=== PATIENT | male | born 1975 | race Two or more races ===

== ENCOUNTER 2019-03-04 10:46 | Inpatient (IN) | payer MEDICAID ==
[~2019-03-04] VITALS: Ht 175.3 cm; Wt 84.8 kg
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
[2019-03-04 10:59] VITALS: BP 113/77
--- NOTE | 2019-03-04 11:07 | NUR ---
ED Nurse Note: RADIOLOGY CALLED FOR CT.
--- NOTE | 2019-03-04 11:33 | NUR ---
ED Nurse Note: PT TO CT VIA [facility].
--- NOTE | 2019-03-04 12:00 | NUR ---
ED Nurse Note: PT BACK FROM CT VIA [facility].
[2019-03-04] MEDS ORDERED: Piperacillin/Tazobactam 3.375 GM in NS 110 ML IVPB ONE (12:15)
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
--- NOTE | 2019-03-04 12:19 | Diagnostic Imaging Report ---
Indications: Altered mental status Technique: Spiral acquisitions obtained through the brain. Angled axial and coronal 5 x 5 mm slices were reconstructed. Total dose length product 1386.64 mGycm. CTDI vol(s) 70.38 mGy. Dose reduction achieved using automated exposure control Comparison: None. Findings: No acute intracranial hemorrhage or edema, mass effect, nor midline shift. There is a right periorbital scalp soft tissue contusion. Normal rodriguez-white differentiation. Normal-sized ventricles and extra-axial CSF spaces. Probable small colloid cyst at the roof of the third ventricle. Intact calvarium. Impression: Right periorbital scalp soft tissue contusion Negative for acute intracranial bleed or mass effect The CT scanner at [facility] is accredited by the [employer] and the scans are performed using protocols designed to limit radiation exposure to as low as reasonably achievable to attain images of sufficient resolution adequate for diagnostic evaluation.
[2019-03-04 13:00] LABS: BASOPHILS % (AUTO) 0.9 % (0.0-2.0); EOSINOPHILS % (AUTO) 0.8 % (0.0-3.0); HEMATOCRIT 38.8 % (42.0-52.0); HEMOGLOBIN 12.6 G/DL (14.2-18.0); LYMPHOCYTES % (AUTO) 18.5 % (20.0-45.0); MEAN CORPUSCULAR VOLUME 95 FL (80-99); MONOCYTES % (AUTO) 10.1 % (1.0-10.0); NEUTROPHILS % (AUTO) 69.8 % (45.0-75.0); PLATELET COUNT 315 K/UL (150-450); RED BLOOD COUNT 4.09 M/UL (4.70-6.10); RED CELL DISTRIBUTION WIDTH 15.5 % (11.6-14.8); WHITE BLOOD COUNT 10.6 K/UL (4.8-10.8)
[2019-03-04 13:38] LABS: ANION GAP 9 mmol/L (5-15); BLOOD UREA NITROGEN 10 mg/dL (7-18); CARBON DIOXIDE 25 MMOL/L (21-32); CHLORIDE 103 MMOL/L (98-107); CREATININE 0.7 MG/DL (0.55-1.30); POTASSIUM 4.2 MMOL/L (3.5-5.1); SODIUM 137 MMOL/L (136-145)
[2019-03-04 13:43] LABS: ALANINE AMINOTRANSFERASE 58 U/L (12-78); ALBUMIN 3.6 G/DL (3.4-5.0); ALBUMIN/GLOBULIN RATIO 0.9 (1.0-2.7); ALKALINE PHOSPHATASE 97 U/L (46-116); ASPARTATE AMINO TRANSFERASE 41 U/L (15-37); BILIRUBIN,TOTAL 0.3 MG/DL (0.2-1.0)
[2019-03-04 14:51] LABS: INR 0.9 (0.9-1.1)
[2019-03-04 15:00] VITALS: BP 116/78
[2019-03-04] MEDS ORDERED: Miralax 17gm pkt ORAL PRN (15:30)
[2019-03-04] MEDS ORDERED: Nitroglycerin Subl 0.4mg tab SL PRN (15:30)
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
[2019-03-04] MEDS ORDERED: NKM (16:26)
--- NOTE | 2019-03-04 17:24 | NUR ---
ED Nurse Note: [facility] CALLED FOR PT TRANSFER. REPORT GIVEN TO LEN BARDALES. PT TAKEN UP TO [facility] VIA GURNEY WITH ALL BELONGINGS ACCOMPANIED BY EMT. VSS.
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
--- NOTE | 2019-03-04 19:41 | NUR ---
HAND-OFF: Report given to Marjorie QUINTEROS.
[2019-03-04 20:00] VITALS: BP 125/69
[2019-03-04] MEDS: D5 1/2NS 1,000 ML IV SCH (20:00)
[2019-03-04] MEDS: Heparin 5000 units/ml inj SUBQ SCH (21:00)
[2019-03-05] VITALS: BP 145/69
[2019-03-05] MEDS: D5 1/2NS 1,000 ML IV SCH (07:00)
--- NOTE | 2019-03-05 07:36 | NUR ---
NURSE NOTES: Patient is awake and alert,respirations unlabored.Patient sitting up in bed and eating breakfast.No complaints at this time,call light within reach.
[2019-03-05 08:00] VITALS: BP 107/63
[2019-03-05 08:47] LABS: HEMOGLOBIN 11.6 G/DL (14.2-18.0); LYMPHOCYTES % (AUTO) 23.1 % (20.0-45.0); MEAN CORPUSCULAR VOLUME 93 FL (80-99); MONOCYTES % (AUTO) 9.3 % (1.0-10.0); NEUTROPHILS % (AUTO) 63.6 % (45.0-75.0); PLATELET COUNT 298 K/UL (150-450); RED BLOOD COUNT 3.75 M/UL (4.70-6.10); WHITE BLOOD COUNT 8.8 K/UL (4.8-10.8)
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
[2019-03-05 09:25] LABS: ALANINE AMINOTRANSFERASE 51 U/L (12-78); ALBUMIN 2.7 G/DL (3.4-5.0); ALBUMIN/GLOBULIN RATIO 0.7 (1.0-2.7); ALKALINE PHOSPHATASE 83 U/L (46-116); AMYLASE 27 U/L (25-115); ANION GAP 9 mmol/L (5-15); ASPARTATE AMINO TRANSFERASE 33 U/L (15-37); BILIRUBIN,TOTAL 0.3 MG/DL (0.2-1.0); BLOOD UREA NITROGEN 8 mg/dL (7-18); CALCIUM 8.2 MG/DL (8.5-10.1); CARBON DIOXIDE 26 MMOL/L (21-32); CHLORIDE 105 MMOL/L (98-107); CREATININE 0.8 MG/DL (0.55-1.30); POTASSIUM 3.9 MMOL/L (3.5-5.1); SODIUM 140 MMOL/L (136-145)
[2019-03-05] MEDS: Heparin 5000 units/ml inj SUBQ SCH ×2 (10:55→21:58)
[2019-03-05 12:00] VITALS: BP 110/76
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
[2019-03-05] MEDS: Clindamycin 150mg cap ORAL SCH ×2 (14:16→21:56)
[2019-03-05 16:00] VITALS: BP 126/75
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
--- NOTE | 2019-03-05 18:16 | History & Physical ---
History and Physical History & Physicial Dictated for Int Med-Dr Flores no. [id number]. Valerio Daniel MD Mar 05, 2019 18:16
--- NOTE | 2019-03-05 18:41 | NUR ---
NURSE NOTES: Patient tolerating meals and snacks,no complaint of pain.Old scar /surgical incision no drainage noted,patient was started on oral antibiotics as ordered.Patient ambulating throughout the day,gait is steady.
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
--- NOTE | 2019-03-05 19:50 | NUR ---
HAND-OFF: Report given to Marjorie QUINTEROS.
[2019-03-05 20:00] VITALS: BP 130/79
[2019-03-06] VITALS: BP 132/78
--- NOTE | 2019-03-06 01:45 | NUR ---
NURSE NOTES: Pt received in bed asleep, able to make needs known, ambulatory, call light within reach, dry dressing on abdomen and wound care nurse notified about patient abdomen, no c/o pain or signs of distress at the moment, will continue to monitor.
--- NOTE | 2019-03-06 01:57 | NUR ---
HAND-OFF: Report given to LEN CHAMBERS.
[2019-03-06 04:00] VITALS: BP 129/97
[2019-03-06] MEDS: Clindamycin 150mg cap ORAL SCH ×3 (05:04→21:08)
--- NOTE | 2019-03-06 07:25 | NUR ---
NURSE NOTES: Received report from LEN Davenport. Pt in bed, awake, talkative, but disoriented. Eating breakfast, no complaints of pain, no apparent distress, bed in lowest position, call light within reach.
--- NOTE | 2019-03-06 07:41 | NUR ---
HAND-OFF: Report given to LEN boles.
[2019-03-06 08:00] VITALS: BP 136/70
[2019-03-06] MEDS: Heparin 5000 units/ml inj SUBQ SCH ×2 (08:04→21:13)
[2019-03-06 08:54] LABS: BASOPHILS % (AUTO) 1.5 % (0.0-2.0); HEMATOCRIT 38.5 % (42.0-52.0); HEMOGLOBIN 12.4 G/DL (14.2-18.0); LYMPHOCYTES % (AUTO) 30.4 % (20.0-45.0); MEAN CORPUSCULAR VOLUME 95 FL (80-99); MONOCYTES % (AUTO) 14.7 % (1.0-10.0); NEUTROPHILS % (AUTO) 48.4 % (45.0-75.0); PLATELET COUNT 337 K/UL (150-450); RED BLOOD COUNT 4.04 M/UL (4.70-6.10); RED CELL DISTRIBUTION WIDTH 15.4 % (11.6-14.8); WHITE BLOOD COUNT 8.1 K/UL (4.8-10.8)
[2019-03-06 09:24] LABS: ANION GAP 9 mmol/L (5-15); BLOOD UREA NITROGEN 14 mg/dL (7-18); CALCIUM 8.6 MG/DL (8.5-10.1); CARBON DIOXIDE 26 MMOL/L (21-32); CHLORIDE 106 MMOL/L (98-107); CREATININE 0.8 MG/DL (0.55-1.30); POTASSIUM 4.2 MMOL/L (3.5-5.1); SODIUM 141 MMOL/L (136-145)
--- NOTE | 2019-03-06 10:11 | General Progress Note ---
Assessment/Plan Problem List: (1) Psychiatric disorder ICD Codes: F99 - Mental disorder, not otherwise specified SNOMED: 22156232 (2) Foreign body in intestine and colon ICD Codes: T18.3XXA - Foreign body in small intestine, initial encounter; T18.4XXA - Foreign body in colon, initial encounter SNOMED: 197549287 (3) Intra-abdominal free air of unknown etiology ICD Codes: K66.8 - Other specified disorders of peritoneum SNOMED: 55076529 Assessment/Plan: surg in put appreciated on reg diet no need for GI procedures Subjective ROS Limited/Unobtainable: Yes Allergies: Coded Allergies: No Known Allergies (Unverified , 03/04/19) Objective Last 24 Hour Vital Signs Date Time Temp Pulse Resp B/P (MAP) Pulse Ox O2 Delivery O2 Flow Rate FiO2 03/06/19 09:00 Room Air 03/06/19 08:00 97.9 67 16 136/70 (92) 98 03/06/19 04:00 98.6 69 20 129/97 (108) 97 03/06/19 00:00 98.7 55 19 132/78 (96) 97 03/05/19 21:00 Room Air 03/05/19 20:00 99.6 51 19 130/79 (96) 97 03/05/19 16:00 98.1 77 18 126/75 (92) 97 03/05/19 12:00 97.2 59 18 110/76 (87) 96 Intake and Output 03/05/19 03/06/19 19:00 07:00 Intake Total 2000 ml 960 ml Balance 2000 ml 960 ml Intake Oral 960 ml Other 2000 ml # Voids 5 Laboratory Tests 03/06/19 05:44: White Blood Count 8.1, Red Blood Count 4.04L, Hemoglobin 12.4L, Hematocrit 38.5L , Mean Corpuscular Volume 95, Mean Corpuscular Hemoglobin 30.7, Mean Corpuscular Hemoglobin Concent 32.2, Red Cell Distribution Width 15.4H, Platelet Count 337, Mean Platelet Volume 8.5, Neutrophils (%) (Auto) 48.4, Lymphocytes (%) (Auto) 30.4, Monocytes (%) (Auto) 14.7H, Eosinophils (%) (Auto) 5.0H, Basophils (%) (Auto) 1.5, Sodium Level 141, Potassium Level 4.2, Chloride Level 106, Carbon Dioxide Level 26, Anion Gap 9, Blood Urea Nitrogen 14, Creatinine 0.8, Estimat Glomerular Filtration Rate > 60, Glucose Level 111H, Calcium Level 8.6 Height (Feet): 5 Height (Inches): 9.00 Weight (Pounds): 190 General Appearance: alert EENT: normal ENT inspection Neck: supple Cardiovascular: normal rate Respiratory/Chest: lungs clear Abdomen: normal bowel sounds, non tender, soft Extremities: non-tender Sami Sears MD Mar 06, 2019 10:11
[2019-03-06] MEDS ORDERED: D5 1/2NS 1000ml IV ONE (10:24)
[2019-03-06 12:00] VITALS: BP 120/76
--- NOTE | 2019-03-06 12:41 | Internal Med Progress Note ---
Subjective Date of Service: Mar 06, 2019 Physician Name Valerio Daniel Attending Physician Bill Flores MD Current Medications Medications (Trade) Dose Ordered Sig/Elicia Route PRN Reason Start Time Stop Time Status Last Admin Dose Admin Acetaminophen (Tylenol) 650 mg Q4H PRN ORAL fever (temp>100.5 F) 03/04/19 15:30 04/03/19 15:29 Clindamycin HCl (Cleocin) 450 mg EVERY 8 HOURS ORAL 03/05/19 14:00 03/12/19 13:59 03/06/19 05:04 Dextrose (Dextrose 50%) 25 ml Q30M PRN IV Hypoglycemia 03/04/19 15:30 04/03/19 15:29 Dextrose (Dextrose 50%) 50 ml Q30M PRN IV Hypoglycemia 03/04/19 15:30 04/03/19 15:29 Diphenhydramine HCl (Benadryl) 25 mg Q6H PRN ORAL Itching/Pruritis 03/04/19 15:30 04/03/19 15:29 Heparin Sodium (Porcine) (Heparin 5000 units/ml) 5,000 units EVERY 12 HOURS SUBQ 03/04/19 21:00 04/03/19 20:59 03/06/19 08:04 Morphine Sulfate (Morphine Sulfate) 2 mg Q4H PRN IVP severe Pain (Pain Scale 7-10) 03/04/19 15:30 03/11/19 15:29 Nitroglycerin (Ntg) 0.4 mg Q5M X 3 DOSES PRN SL Prn Chest Pain 03/04/19 15:30 04/03/19 15:29 Ondansetron HCl (Zofran) 4 mg Q6H PRN IVP Nausea & Vomiting 03/04/19 15:30 04/03/19 15:29 Polyethylene Glycol (Miralax) 17 gm HSPRN PRN ORAL Constipation 03/04/19 15:30 04/03/19 15:29 Temazepam (Restoril) 15 mg HSPRN PRN ORAL Insomnia 03/04/19 21:00 03/11/19 20:59 Allergies: Coded Allergies: No Known Allergies (Unverified , 03/04/19) ROS Limited/Unobtainable: No Constitutional: Reports: no symptoms HEENT: Reports: no symptoms Cardiovascular: Reports: no symptoms Respiratory: Reports: no symptoms Gastrointestinal/Abdominal: Reports: no symptoms Genitourinary: Reports: no symptoms Neurologic/Psychiatric: Reports: no symptoms Subjective 43 YO M admitted with abdominal pain, nausea and vomiting. Now foreign body in intestine and colon with perforated viscus. Cover for Int Eliseo-Dr Flores Objective Last Vital Signs Date Time Temp Pulse Resp B/P (MAP) Pulse Ox O2 Delivery O2 Flow Rate FiO2 03/06/19 12:00 97.9 62 16 120/76 (91) 99 03/06/19 09:00 Room Air Laboratory Tests Test 03/06/19 05:44 White Blood Count 8.1 K/UL (4.8-10.8) Red Blood Count 4.04 M/UL (4.70-6.10) L Hemoglobin 12.4 G/DL (14.2-18.0) L Hematocrit 38.5 % (42.0-52.0) L Mean Corpuscular Volume 95 FL (80-99) Mean Corpuscular Hemoglobin 30.7 PG (27.0-31.0) Mean Corpuscular Hemoglobin Concent 32.2 G/DL (32.0-36.0) Red Cell Distribution Width 15.4 % (11.6-14.8) H Platelet Count 337 K/UL (150-450) Mean Platelet Volume 8.5 FL (6.5-10.1) Neutrophils (%) (Auto) 48.4 % (45.0-75.0) Lymphocytes (%) (Auto) 30.4 % (20.0-45.0) Monocytes (%) (Auto) 14.7 % (1.0-10.0) H Eosinophils (%) (Auto) 5.0 % (0.0-3.0) H Basophils (%) (Auto) 1.5 % (0.0-2.0) Sodium Level 141 MMOL/L (136-145) Potassium Level 4.2 MMOL/L (3.5-5.1) Chloride Level 106 MMOL/L (98-107) Carbon Dioxide Level 26 MMOL/L (21-32) Anion Gap 9 mmol/L (5-15) Blood Urea Nitrogen 14 mg/dL (7-18) Creatinine 0.8 MG/DL (0.55-1.30) Estimat Glomerular Filtration Rate > 60 mL/min (>60) Glucose Level 111 MG/DL (74-106) H Calcium Level 8.6 MG/DL (8.5-10.1) Intake and Output 03/05/19 03/06/19 19:00 07:00 Intake Total 2000 ml 960 ml Balance 2000 ml 960 ml Intake Oral 960 ml Other 2000 ml # Voids 5 Objective PHYSICAL EXAMINATION: GENERAL: The patient is well-developed and well-nourished, confused male, in no apparent distress HEENT: Eyes, pupils are equal and responsive to light and accommodation. Extraocular movements are intact. NECK: Supple without lymphadenopathy. CHEST: Lungs are clear to auscultation bilaterally without wheezes or rales. CARDIOVASCULAR: Regular rhythm and rate. S1 and S2 normal without murmurs, rubs, or gallops. ABDOMEN: Soft, nontender, and nondistended. Positive bowel sounds. No evidence of hepatosplenomegaly. Currently, no rebound or guarding noted. EXTREMITIES: Negative for clubbing, cyanosis, or edema. RECTAL/GENITAL: Refused. NEUROLOGIC: Cranial nerves II through XII are grossly intact without focal deficits. Motor strength is 5/5 bilaterally. Deep tendon reflexes are 2+ plantar. Assessment/Plan Assessment/Plan ASSESSMENT: This is a 43-year-old male. 1. Abdominal pain. 2. Nausea with vomiting. 3. Perforated abdominal viscus. 4. Asthma. 5. Hypertension. 6. Diabetes type 2. 7. foreign object in sm intestine and colon 8. Schizophrenia TREATMENT: 1. Abdominal pain/nausea/vomiting/perforated viscus. A General Surgery consultation has been obtained with Dr. Tsang. We will follow recommendations of Surgery. The patient is currently tolerating diet. 2. Asthma. 3. Hypertension. The patient is currently normotensive, off medication. 4. History of diabetes type 2. The patient's blood sugar is currently normal. Valerio Daniel MD Mar 06, 2019 12:41
--- NOTE | 2019-03-06 14:32 | NUR ---
CASE MANAGEMENT: REVIEW 03/06/2019 SI:FOREIGN BODY IN INTESTINE AND COLON . INTRA-ABDOMINAL FREE AIR T 98.7 HR 55 RR 19 B/P 132/78 SATS 97% ON RA GLU 111 IS:CLINDAMYCIN PO Q8H MED/SURG STATUS
[2019-03-06 15:46] VITALS: BP 118/99
--- NOTE | 2019-03-06 18:44 | NUR ---
NURSE NOTES: Pt walked out to nurse's station stating, "can I get a PRN or something, something is telling me to stick a needle into my neck and hurt myself." Called Dr. Daniel for psych consult and request for medication. Left message on emergency line
--- NOTE | 2019-03-06 19:08 | NUR ---
HAND-OFF: Report given to LEN Larkin. Pt stable.
--- NOTE | 2019-03-06 19:33 | Cardiology Report ---
APPROVED REPORT EKG Measurement Heart [id number] Sinus bradycardia Otherwise normal ECG
[2019-03-06 20:08] VITALS: BP 110/57
--- NOTE | 2019-03-06 20:14 | NUR ---
NURSE NOTES: Patient in bed, awake, talkative, can make needs known. No s/s respiratory distress noted. No complaints of pain at this times. No complaints of hearing voices at this time. Ambulatory. Given juice. Bed in lowest position, call light within reach. Will continue to monitor.
[2019-03-07] VITALS: BP 120/71
[2019-03-07] MEDS: Clindamycin 150mg cap ORAL SCH ×3 (05:06→21:33)
--- NOTE | 2019-03-07 06:33 | NUR ---
NURSE NOTES: No distress noted, asleep.
--- NOTE | 2019-03-07 07:30 | NUR ---
HAND-OFF: Report given to MORIS Putnam RN.
--- NOTE | 2019-03-07 07:30 | NUR ---
NURSE NOTES: Received pt from LEN LINARES. Pt is confused and orient x2. pt is in RA, No SOB or acute respiratory distress noted. pt has intact iv access LH 22G SL. All needs attended, bed is locked and is in the lowest position. call light within easy reach. will continue to monitor.
[2019-03-07 08:00] VITALS: BP 116/67
--- NOTE | 2019-03-07 08:10 | General Progress Note ---
Assessment/Plan Problem List: (1) Psychiatric disorder ICD Codes: F99 - Mental disorder, not otherwise specified SNOMED: 40368525 (2) Foreign body in intestine and colon ICD Codes: T18.3XXA - Foreign body in small intestine, initial encounter; T18.4XXA - Foreign body in colon, initial encounter SNOMED: 856243017 (3) Intra-abdominal free air of unknown etiology ICD Codes: K66.8 - Other specified disorders of peritoneum SNOMED: 90381467 Assessment/Plan: surg in put appreciated on reg diet no need for GI procedures Subjective ROS Limited/Unobtainable: Yes Allergies: Coded Allergies: No Known Allergies (Unverified , 03/04/19) Objective Last 24 Hour Vital Signs Date Time Temp Pulse Resp B/P (MAP) Pulse Ox O2 Delivery O2 Flow Rate FiO2 03/07/19 00:00 98.2 57 20 120/71 (87) 99 03/06/19 21:54 Room Air 03/06/19 20:08 98.2 60 20 110/57 (74) 99 03/06/19 15:46 98.6 71 20 118/99 (105) 98 03/06/19 12:00 97.9 62 16 120/76 (91) 99 03/06/19 09:00 Room Air Intake and Output 03/06/19 03/07/19 19:00 07:00 Intake Total 1320 ml 480 ml Balance 1320 ml 480 ml Intake Oral 1320 ml 480 ml # Voids 7 2 # Bowel Movements 1 Height (Feet): 5 Height (Inches): 9.00 Weight (Pounds): 190 General Appearance: alert EENT: normal ENT inspection Neck: supple Cardiovascular: normal rate Respiratory/Chest: lungs clear Abdomen: normal bowel sounds, non tender, soft Extremities: non-tender Sami Sears MD Mar 07, 2019 08:10
[2019-03-07 08:16] LABS: BASOPHILS % (AUTO) 1.5 % (0.0-2.0); LYMPHOCYTES % (AUTO) 38.3 % (20.0-45.0); MEAN CORPUSCULAR VOLUME 96 FL (80-99); MONOCYTES % (AUTO) 11.4 % (1.0-10.0); NEUTROPHILS % (AUTO) 42.8 % (45.0-75.0); PLATELET COUNT 351 K/UL (150-450); RED BLOOD COUNT 3.86 M/UL (4.70-6.10); RED CELL DISTRIBUTION WIDTH 15.5 % (11.6-14.8); WHITE BLOOD COUNT 6.9 K/UL (4.8-10.8)
[2019-03-07 08:32] LABS: ANION GAP 10 mmol/L (5-15); BLOOD UREA NITROGEN 15 mg/dL (7-18); CALCIUM 8.7 MG/DL (8.5-10.1); CARBON DIOXIDE 24 MMOL/L (21-32); CHLORIDE 106 MMOL/L (98-107); CREATININE 0.9 MG/DL (0.55-1.30); POTASSIUM 3.8 MMOL/L (3.5-5.1); SODIUM 140 MMOL/L (136-145)
[2019-03-07] MEDS: Heparin 5000 units/ml inj SUBQ SCH (09:02)
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
[2019-03-07 11:51] VITALS: BP 119/64
--- NOTE | 2019-03-07 13:51 | NUR ---
RD ASSESSMENT & RECOMMENDATIONS SEE CARE ACTIVITY FOR COMPLETE ASSESSMENT DAILY ESTIMATED NEEDS: Needs based on Surgical wound 76kg adj 25-30 kcals/kg 6364-5168 total kcals 1.25-1.5 g protein/kg 95-114 g total protein 25-30 mL/kg 0964-7319 total fluid mLs NUTRITION DIAGNOSIS: Increased pro needs r/t surgical wound healing as evidenced by pt w/mid abdomen surgical scar, pending wound eval, open per photo. CURRENT DIET: Regular soft easy chew PO DIET RECOMMENDATIONS: Regular diet as tolerated per GI ADDITIONAL RECOMMENDATIONS: 1) F/up w/ Wound care eval 2) add ROSANNE 1 pack BID 3) Obtain a standing weight - pt on bed without scale
--- NOTE | 2019-03-07 14:56 | Internal Med Progress Note ---
Subjective Date of Service: Mar 07, 2019 Physician Name MaríaValerio Attending Physician Bill Flores MD Current Medications Medications (Trade) Dose Ordered Sig/Elicia Route PRN Reason Start Time Stop Time Status Last Admin Dose Admin Acetaminophen (Tylenol) 650 mg Q4H PRN ORAL fever (temp>100.5 F) 03/04/19 15:30 04/03/19 15:29 Clindamycin HCl (Cleocin) 450 mg EVERY 8 HOURS ORAL 03/05/19 14:00 03/12/19 13:59 03/07/19 13:45 Dextrose (Dextrose 50%) 25 ml Q30M PRN IV Hypoglycemia 03/04/19 15:30 04/03/19 15:29 Dextrose (Dextrose 50%) 50 ml Q30M PRN IV Hypoglycemia 03/04/19 15:30 04/03/19 15:29 Diphenhydramine HCl (Benadryl) 25 mg Q6H PRN ORAL Itching/Pruritis 03/04/19 15:30 04/03/19 15:29 Lorazepam (Ativan 2mg/ml 1ml) 1 mg Q6H PRN IV For Anxiety 03/06/19 19:00 03/13/19 18:59 Morphine Sulfate (Morphine Sulfate) 2 mg Q4H PRN IVP severe Pain (Pain Scale 7-10) 03/04/19 15:30 03/11/19 15:29 Nitroglycerin (Ntg) 0.4 mg Q5M X 3 DOSES PRN SL Prn Chest Pain 03/04/19 15:30 04/03/19 15:29 Ondansetron HCl (Zofran) 4 mg Q6H PRN IVP Nausea & Vomiting 03/04/19 15:30 04/03/19 15:29 Polyethylene Glycol (Miralax) 17 gm HSPRN PRN ORAL Constipation 03/04/19 15:30 04/03/19 15:29 Quetiapine Fumarate (SEROquel) 100 mg BIDPRN PRN ORAL Agitation 03/06/19 19:00 04/05/19 18:59 03/06/19 19:06 Temazepam (Restoril) 15 mg HSPRN PRN ORAL Insomnia 03/04/19 21:00 03/11/19 20:59 Allergies: Coded Allergies: No Known Allergies (Unverified , 03/04/19) ROS Limited/Unobtainable: No Constitutional: Reports: no symptoms HEENT: Reports: no symptoms Cardiovascular: Reports: no symptoms Respiratory: Reports: no symptoms Gastrointestinal/Abdominal: Reports: no symptoms Genitourinary: Reports: no symptoms Neurologic/Psychiatric: Reports: no symptoms Subjective 43 YO M admitted with abdominal pain, nausea and vomiting. Now foreign body in intestine and colon with perforated viscus. Cover for Int Eliseo-Dr Flores Objective Last Vital Signs Date Time Temp Pulse Resp B/P (MAP) Pulse Ox O2 Delivery O2 Flow Rate FiO2 03/07/19 11:51 98.9 62 18 119/64 (82) 99 03/07/19 09:00 Room Air Laboratory Tests Test 03/07/19 05:50 White Blood Count 6.9 K/UL (4.8-10.8) Red Blood Count 3.86 M/UL (4.70-6.10) L Hemoglobin 12.0 G/DL (14.2-18.0) L Hematocrit 37.0 % (42.0-52.0) L Mean Corpuscular Volume 96 FL (80-99) Mean Corpuscular Hemoglobin 31.0 PG (27.0-31.0) Mean Corpuscular Hemoglobin Concent 32.4 G/DL (32.0-36.0) Red Cell Distribution Width 15.5 % (11.6-14.8) H Platelet Count 351 K/UL (150-450) Mean Platelet Volume 9.5 FL (6.5-10.1) Neutrophils (%) (Auto) 42.8 % (45.0-75.0) L Lymphocytes (%) (Auto) 38.3 % (20.0-45.0) Monocytes (%) (Auto) 11.4 % (1.0-10.0) H Eosinophils (%) (Auto) 6.0 % (0.0-3.0) H Basophils (%) (Auto) 1.5 % (0.0-2.0) Sodium Level 140 MMOL/L (136-145) Potassium Level 3.8 MMOL/L (3.5-5.1) Chloride Level 106 MMOL/L (98-107) Carbon Dioxide Level 24 MMOL/L (21-32) Anion Gap 10 mmol/L (5-15) Blood Urea Nitrogen 15 mg/dL (7-18) Creatinine 0.9 MG/DL (0.55-1.30) Estimat Glomerular Filtration Rate > 60 mL/min (>60) Glucose Level 132 MG/DL (74-106) H Calcium Level 8.7 MG/DL (8.5-10.1) Intake and Output 03/06/19 03/07/19 19:00 07:00 Intake Total 1320 ml 480 ml Balance 1320 ml 480 ml Intake Oral 1320 ml 480 ml # Voids 7 2 # Bowel Movements 1 Objective PHYSICAL EXAMINATION: GENERAL: The patient is well-developed and well-nourished, confused male, in no apparent distress HEENT: Eyes, pupils are equal and responsive to light and accommodation. Extraocular movements are intact. NECK: Supple without lymphadenopathy. CHEST: Lungs are clear to auscultation bilaterally without wheezes or rales. CARDIOVASCULAR: Regular rhythm and rate. S1 and S2 normal without murmurs, rubs, or gallops. ABDOMEN: Soft, nontender, and nondistended. Positive bowel sounds. No evidence of hepatosplenomegaly. Currently, no rebound or guarding noted. EXTREMITIES: Negative for clubbing, cyanosis, or edema. RECTAL/GENITAL: Refused. NEUROLOGIC: Cranial nerves II through XII are grossly intact without focal deficits. Motor strength is 5/5 bilaterally. Deep tendon reflexes are 2+ plantar. Assessment/Plan Assessment/Plan ASSESSMENT: This is a 43-year-old male. 1. Abdominal pain. 2. Nausea with vomiting. 3. Perforated abdominal viscus. 4. Asthma. 5. Hypertension. 6. Diabetes type 2. 7. foreign object in sm intestine and colon 8. Schizophrenia TREATMENT: 1. Abdominal pain/nausea/vomiting/perforated viscus. A General Surgery consultation has been obtained with Dr. Tsang. We will follow recommendations of Surgery. The patient is currently tolerating diet. 2. Asthma. 3. Hypertension. The patient is currently normotensive, off medication. 4. History of diabetes type 2. The patient's blood sugar is currently normal. Valerio Daniel MD Mar 07, 2019 14:56
[2019-03-07 16:00] VITALS: BP 128/83
--- NOTE | 2019-03-07 17:16 | NUR ---
CASE MANAGEMENT: REVIEW 03/07/2019 SI:FOREIGN BODY IN INTESTINE AND COLON . INTRA-ABDOMINAL FREE AIR T 97.9 HR 60 RR 19 B/P 128/83 SATS 99% ON RA GLU 132 IS:CLINDAMYCIN PO Q8H MED/SURG STATUS
--- NOTE | 2019-03-07 19:30 | NUR ---
HAND-OFF: Report given to RN MARRY.
--- NOTE | 2019-03-07 19:35 | NUR ---
NURSE NOTES: RECEIVED PT FROM LEN SUBRAMANIAN. PT IS AWAKE, AAOX2, WANDERING AROUND THE UNIT. NO ACUTE DISTRESS NOTED. IV ON L HAND 22G IS INTACT AND PATENT. WILL CONTINUE TO MONITOR.
[2019-03-07 20:00] VITALS: BP 138/77
[2019-03-08 04:00] VITALS: BP 108/55
[2019-03-08] MEDS: Clindamycin 150mg cap ORAL SCH ×3 (06:49→21:37)
--- NOTE | 2019-03-08 07:03 | General Progress Note ---
Assessment/Plan Problem List: (1) Psychiatric disorder ICD Codes: F99 - Mental disorder, not otherwise specified SNOMED: 72250338 (2) Foreign body in intestine and colon ICD Codes: T18.3XXA - Foreign body in small intestine, initial encounter; T18.4XXA - Foreign body in colon, initial encounter SNOMED: 785514421 (3) Intra-abdominal free air of unknown etiology ICD Codes: K66.8 - Other specified disorders of peritoneum SNOMED: 59789200 Assessment/Plan: surg in put appreciated on reg diet no need for GI procedures Subjective ROS Limited/Unobtainable: Yes Allergies: Coded Allergies: No Known Allergies (Unverified , 03/04/19) Objective Last 24 Hour Vital Signs Date Time Temp Pulse Resp B/P (MAP) Pulse Ox O2 Delivery O2 Flow Rate FiO2 03/07/19 21:00 Room Air 03/07/19 20:00 98.4 95 18 138/77 (97) 94 03/07/19 16:00 97.9 60 19 128/83 (98) 99 03/07/19 11:51 98.9 62 18 119/64 (82) 99 03/07/19 09:00 Room Air 03/07/19 08:00 97.6 60 18 116/67 (83) 100 Intake and Output 03/07/19 03/08/19 19:00 07:00 Intake Total 1500 ml 620 ml Balance 1500 ml 620 ml Intake Oral 620 ml Other 1500 ml # Voids 4 Height (Feet): 5 Height (Inches): 9.00 Weight (Pounds): 190 General Appearance: alert EENT: normal ENT inspection Neck: supple Cardiovascular: normal rate Respiratory/Chest: decreased breath sounds Abdomen: normal bowel sounds, non tender, soft Extremities: non-tender Sami Sears MD Mar 08, 2019 07:03
--- NOTE | 2019-03-08 07:19 | NUR ---
NURSE NOTES: RN received pt in stable condition, alert in bed eating breakfast. No s/s or acute distress or SOB. Bed in low, locked position, call light within reach. Will continue plan of care.
--- NOTE | 2019-03-08 07:30 | NUR ---
HAND-OFF: Report given to LEN MARCANO.
[2019-03-08 08:00] VITALS: BP 136/79
--- NOTE | 2019-03-08 09:08 | NUR ---
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 INTRA-ABDOMINAL FREE AIR VS: BP 108/55, P 51, T 99.6, RR 20, SpO2 94 NO LABS TODAY IS:CLINDAMYCIN 450mg HEPARIN SUBQ MED/SURG STATUS
[2019-03-08] MEDS: LORazepam Inj 2mg/ml 1ml IV PRN (09:35)
--- NOTE | 2019-03-08 11:21 | NUR ---
*-* INSURANCE *-* ALL CLINICALS AND REVIEWS HAVE BEEN FAXED TO: IPA: [facility] [address] P: [phone] F: [phone] Addendum: 03/08/19 at 1139 by JORGE PIÑA NCM: BRAYAN BARKER P:[phone]
[2019-03-08 12:00] VITALS: BP 123/64
--- NOTE | 2019-03-08 13:07 | Pulmonology Progress Note ---
Assessment/Plan Problems: (1) Psychiatric disorder (2) Foreign body in intestine and colon Assessment/Plan add seroquel dc planning social service consult appreciated. Subjective ROS Limited/Unobtainable: No Constitutional: Reports: no symptoms HEENT: Repors: no symptoms Allergies: Coded Allergies: No Known Allergies (Unverified , 03/04/19) Objective Last 24 Hour Vital Signs Date Time Temp Pulse Resp B/P (MAP) Pulse Ox O2 Delivery O2 Flow Rate FiO2 03/08/19 12:00 98.6 54 18 123/64 (83) 99 03/08/19 09:00 Room Air 03/08/19 08:00 97.6 69 20 136/79 (98) 99 03/08/19 04:00 99.6 51 18 108/55 (72) 99 03/07/19 21:00 Room Air 03/07/19 20:00 98.4 95 18 138/77 (97) 94 03/07/19 16:00 97.9 60 19 128/83 (98) 99 Intake and Output 03/07/19 03/08/19 19:00 07:00 Intake Total 1500 ml 620 ml Balance 1500 ml 620 ml Intake Oral 620 ml Other 1500 ml # Voids 4 Objective eating well HEENT: normocephalic, PERRL Respiratory/Chest: lungs clear, no respiratory distress Cardiovascular: normal peripheral pulses, regular rhythm Abdomen: normal bowel sounds, non distended Skin: no lesions Current Medications Medications (Trade) Dose Ordered Sig/Elicia Route PRN Reason Start Time Stop Time Status Last Admin Dose Admin Acetaminophen (Tylenol) 650 mg Q4H PRN ORAL fever (temp>100.5 F) 03/04/19 15:30 04/03/19 15:29 Clindamycin HCl (Cleocin) 450 mg EVERY 8 HOURS ORAL 03/05/19 14:00 03/12/19 13:59 03/08/19 06:49 Dextrose (Dextrose 50%) 25 ml Q30M PRN IV Hypoglycemia 03/04/19 15:30 04/03/19 15:29 Dextrose (Dextrose 50%) 50 ml Q30M PRN IV Hypoglycemia 03/04/19 15:30 04/03/19 15:29 Diphenhydramine HCl (Benadryl) 25 mg Q6H PRN ORAL Itching/Pruritis 03/04/19 15:30 04/03/19 15:29 Lorazepam (Ativan 2mg/ml 1ml) 1 mg Q6H PRN IV For Anxiety 03/06/19 19:00 03/13/19 18:59 03/08/19 09:35 Morphine Sulfate (Morphine Sulfate) 2 mg Q4H PRN IVP severe Pain (Pain Scale 7-10) 03/04/19 15:30 03/11/19 15:29 Nitroglycerin (Ntg) 0.4 mg Q5M X 3 DOSES PRN SL Prn Chest Pain 03/04/19 15:30 04/03/19 15:29 Ondansetron HCl (Zofran) 4 mg Q6H PRN IVP Nausea & Vomiting 03/04/19 15:30 04/03/19 15:29 Polyethylene Glycol (Miralax) 17 gm HSPRN PRN ORAL Constipation 03/04/19 15:30 04/03/19 15:29 Quetiapine Fumarate (SEROquel) 100 mg BIDPRN PRN ORAL Agitation 03/06/19 19:00 04/05/19 18:59 03/06/19 19:06 Temazepam (Restoril) 15 mg HSPRN PRN ORAL Insomnia 03/04/19 21:00 03/11/19 20:59 Tamera Bhatti MD Mar 08, 2019 13:07
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
[2019-03-08 16:00] VITALS: BP 120/72
--- NOTE | 2019-03-08 16:14 | NUR ---
HOMELESS COORDINATOR HC spoke with patient and patient is alert and delusional. Patient was actively talking to himself the entire time of assessment. Patient does not have a contact number. Patient states he is not chronically homeless and lives at [address] [place] [address] for 40 years plus. HC was unable to verify address. Patient states he does not want resources for shelters. Patient has no personal injury law specialist. Patient states he receives $900 in SSI. Patient states he is abusing cocaine and marijuana and does not want resources. Patient also states his is bipolar and depressed, patient refuses resources. Patient states he would like to return to [facility]. HC was unable to locate. Patient Has a follow-up appt @ [facility] [address] [place] [address] - March 16, 2019 @ 3:15pm. Clinic provided HC with personal injury law specialist on file for patient, Geri (friend) [phone]. HC was unable to reach, voicemail message left. Patient continues to require medical intervention. Will continue to monitor and assist as needed.
--- NOTE | 2019-03-08 19:04 | NUR ---
HAND-OFF: Report given to LEN Quigley.
--- NOTE | 2019-03-08 19:05 | NUR ---
NURSE NOTES: Received a patient sitting in bed. Patient is AAO x 2. Patient on room air, IV on L forearm 22G intact and patent. No acute distress noted at this time. Bed locked, lowest position, side rails up x 2, call light within reach. Will continue to monitor.
--- NOTE | 2019-03-08 19:17 | Internal Med Progress Note ---
Subjective Date of Service: Mar 08, 2019 Physician Name MaríaValerio Attending Physician Bill Flores MD Current Medications Medications (Trade) Dose Ordered Sig/Elicia Route PRN Reason Start Time Stop Time Status Last Admin Dose Admin Acetaminophen (Tylenol) 650 mg Q4H PRN ORAL fever (temp>100.5 F) 03/04/19 15:30 04/03/19 15:29 Clindamycin HCl (Cleocin) 450 mg EVERY 8 HOURS ORAL 03/05/19 14:00 03/12/19 13:59 03/08/19 14:25 Dextrose (Dextrose 50%) 25 ml Q30M PRN IV Hypoglycemia 03/04/19 15:30 04/03/19 15:29 Dextrose (Dextrose 50%) 50 ml Q30M PRN IV Hypoglycemia 03/04/19 15:30 04/03/19 15:29 Diphenhydramine HCl (Benadryl) 25 mg Q6H PRN ORAL Itching/Pruritis 03/04/19 15:30 04/03/19 15:29 Lorazepam (Ativan 2mg/ml 1ml) 1 mg Q6H PRN IV For Anxiety 03/06/19 19:00 03/13/19 18:59 03/08/19 09:35 Morphine Sulfate (Morphine Sulfate) 2 mg Q4H PRN IVP severe Pain (Pain Scale 7-10) 03/04/19 15:30 03/11/19 15:29 Nitroglycerin (Ntg) 0.4 mg Q5M X 3 DOSES PRN SL Prn Chest Pain 03/04/19 15:30 04/03/19 15:29 Ondansetron HCl (Zofran) 4 mg Q6H PRN IVP Nausea & Vomiting 03/04/19 15:30 04/03/19 15:29 Polyethylene Glycol (Miralax) 17 gm HSPRN PRN ORAL Constipation 03/04/19 15:30 04/03/19 15:29 Quetiapine Fumarate (SEROquel) 50 mg Q12HR ORAL 03/08/19 21:00 04/07/19 20:59 Quetiapine Fumarate (SEROquel) 100 mg BIDPRN PRN ORAL Agitation 03/06/19 19:00 04/05/19 18:59 03/06/19 19:06 Temazepam (Restoril) 15 mg HSPRN PRN ORAL Insomnia 03/04/19 21:00 03/11/19 20:59 Allergies: Coded Allergies: No Known Allergies (Unverified , 03/04/19) ROS Limited/Unobtainable: No Constitutional: Reports: no symptoms HEENT: Reports: no symptoms Cardiovascular: Reports: no symptoms Respiratory: Reports: no symptoms Gastrointestinal/Abdominal: Reports: abdominal pain Genitourinary: Reports: no symptoms Neurologic/Psychiatric: Reports: no symptoms Subjective 43 YO M admitted with abdominal pain, nausea and vomiting. Now foreign body in intestine and colon with perforated viscus. Cover for Int Med-Dr Flores. Staff reports patient talking to himself. Objective Last Vital Signs Date Time Temp Pulse Resp B/P (MAP) Pulse Ox O2 Delivery O2 Flow Rate FiO2 03/08/19 16:00 98.6 73 18 120/72 (88) 97 03/08/19 09:00 Room Air Intake and Output 03/07/19 03/08/19 19:00 07:00 Intake Total 1500 ml 620 ml Balance 1500 ml 620 ml Intake Oral 620 ml Other 1500 ml # Voids 4 Objective PHYSICAL EXAMINATION: GENERAL: The patient is well-developed and well-nourished, confused male, in no apparent distress HEENT: Eyes, pupils are equal and responsive to light and accommodation. Extraocular movements are intact. NECK: Supple without lymphadenopathy. CHEST: Lungs are clear to auscultation bilaterally without wheezes or rales. CARDIOVASCULAR: Regular rhythm and rate. S1 and S2 normal without murmurs, rubs, or gallops. ABDOMEN: Soft, nontender, and nondistended. Positive bowel sounds. No evidence of hepatosplenomegaly. Currently, no rebound or guarding noted. EXTREMITIES: Negative for clubbing, cyanosis, or edema. RECTAL/GENITAL: Refused. NEUROLOGIC: Cranial nerves II through XII are grossly intact without focal deficits. Motor strength is 5/5 bilaterally. Deep tendon reflexes are 2+ plantar. Assessment/Plan Assessment/Plan ASSESSMENT: This is a 43-year-old male. 1. Abdominal pain. 2. Nausea with vomiting. 3. Perforated abdominal viscus. 4. Asthma. 5. Hypertension. 6. Diabetes type 2. 7. foreign object in sm intestine and colon 8. Schizophrenia TREATMENT: 1. Abdominal pain/nausea/vomiting/perforated viscus. A General Surgery consultation has been obtained with Dr. Tsang. We will follow recommendations of Surgery. The patient is currently tolerating diet. 2. Asthma. 3. Hypertension. The patient is currently normotensive, off medication. 4. History of diabetes type 2. The patient's blood sugar is currently normal. 5. Start Seroquel for auditory hallucinations Valerio Daniel MD Mar 08, 2019 19:17
[2019-03-08 20:00] VITALS: BP 108/78
[2019-03-09] VITALS: BP 121/78
--- NOTE | 2019-03-09 00:30 | NUR ---
NURSE NOTES: Noted removed IV on L wrist 22G by patient. Patient c/o back pain. RN asked new IV insertion to administer pain med but patient refused. Educated patient regarding importance of IV. Tylenol prn given as ordered.
[2019-03-09 04:00] VITALS: BP 107/54
[2019-03-09] MEDS: Clindamycin 150mg cap ORAL SCH ×3 (05:31→21:14)
[2019-03-09] MEDS: Morphine Sulfate 2mg/ml Inj(IV/IM USE ONLY) IVP PRN ×2 (05:34→12:25)
--- NOTE | 2019-03-09 07:11 | NUR ---
HAND-OFF: Report given to LEN Gonzalez.
--- NOTE | 2019-03-09 07:16 | NUR ---
NURSE NOTES: RN received pt in stable condition from LEN Quigley. Pt awake and alert in bed eating breakfast. No s/s of acute distress or SOB. Pt IV asymptomatic and patent. Bed in low, locked position, call light within reach. Will continue plan of care.
--- NOTE | 2019-03-09 11:16 | General Progress Note ---
Assessment/Plan Problem List: (1) Psychiatric disorder ICD Codes: F99 - Mental disorder, not otherwise specified SNOMED: 00342897 (2) Foreign body in intestine and colon ICD Codes: T18.3XXA - Foreign body in small intestine, initial encounter; T18.4XXA - Foreign body in colon, initial encounter SNOMED: 633610984 (3) Intra-abdominal free air of unknown etiology ICD Codes: K66.8 - Other specified disorders of peritoneum SNOMED: 49326747 Assessment/Plan: surg in put appreciated on reg diet no need for GI procedures Subjective ROS Limited/Unobtainable: Yes Allergies: Coded Allergies: No Known Allergies (Unverified , 03/04/19) Objective Last 24 Hour Vital Signs Date Time Temp Pulse Resp B/P (MAP) Pulse Ox O2 Delivery O2 Flow Rate FiO2 03/09/19 09:00 Room Air 03/09/19 04:00 98.7 55 18 107/54 (71) 100 03/09/19 00:00 97.8 78 19 121/78 (92) 98 03/08/19 21:00 Room Air 03/08/19 20:00 98.2 68 20 108/78 (88) 100 03/08/19 16:00 98.6 73 18 120/72 (88) 97 03/08/19 12:00 98.6 54 18 123/64 (83) 99 Intake and Output 03/08/19 03/09/19 19:00 07:00 Intake Total 260 ml 1100 ml Balance 260 ml 1100 ml Intake Oral 260 ml 1100 ml # Voids 3 3 Height (Feet): 5 Height (Inches): 9.00 Weight (Pounds): 190 General Appearance: alert EENT: normal ENT inspection Neck: supple Cardiovascular: normal rate Respiratory/Chest: accessory muscle use Abdomen: normal bowel sounds, non tender, soft Extremities: non-tender Sami Sears MD Mar 09, 2019 11:16
--- NOTE | 2019-03-09 11:30 | NUR ---
Social Service Note MARY JANE brady traced the address provided by patient [id number] MARY JANE spoke with the current miner placer of the address who knows patient and patient's sister Enid. Family has not resided in the dwelling for about 2 years. Current miner placer will contact a neighbor who knows patient's sister and provide SW her contact number. Current miner placer states patient is homeless and is not residing with his sister. Current miner placer doesn't know sister's contact information. No return call from Geri [phone] listed friend at clinic. Patient not seen at [facility] in almost a year 03/2018. Patient continues to refuse placement. Continue to recommend psych consult. Due to periods of agitation MARY JANE able to refer patient to psych in AM. Will continue to monitor.
[2019-03-09 12:00] VITALS: BP 101/68
--- NOTE | 2019-03-09 12:40 | NUR ---
NURSE NOTES: Pt responding to internal stimuli; auditory hallucinations. Security was called by staff. RN with assist from charge nurse was able to de-esculate pt's agitation by treating pain with PRN med and moving pt to another room.
--- NOTE | 2019-03-09 12:58 | NUR ---
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
[2019-03-09] MEDS ORDERED: SEROQUEL25 MG ORAL (13:39)
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
[2019-03-09] MEDS: LORazepam Inj 2mg/ml 1ml IV PRN (14:10)
--- NOTE | 2019-03-09 15:00 | NUR ---
*-* INSURANCE *-* ALL CLINICALS AND REVIEWS HAVE BEEN FAXED TO: IPA: SHELLEY GONZALEZ P: [phone] [id number] F: [phone] NCM: BRAYAN BARKER
[2019-03-09 16:00] VITALS: BP 105/54
--- NOTE | 2019-03-09 17:18 | Internal Med Progress Note ---
Subjective Date of Service: Mar 09, 2019 Physician Name Daniel,Valerio Attending Physician Bill Flores MD Current Medications Medications (Trade) Dose Ordered Sig/Elicia Route PRN Reason Start Time Stop Time Status Last Admin Dose Admin Acetaminophen (Tylenol) 650 mg Q4H PRN ORAL fever (temp>100.5 F) 03/04/19 15:30 04/03/19 15:29 03/09/19 01:32 Clindamycin HCl (Cleocin) 450 mg EVERY 8 HOURS ORAL 03/05/19 14:00 03/12/19 13:59 03/09/19 13:56 Dextrose (Dextrose 50%) 25 ml Q30M PRN IV Hypoglycemia 03/04/19 15:30 04/03/19 15:29 Dextrose (Dextrose 50%) 50 ml Q30M PRN IV Hypoglycemia 03/04/19 15:30 04/03/19 15:29 Diphenhydramine HCl (Benadryl) 25 mg Q6H PRN ORAL Itching/Pruritis 03/04/19 15:30 04/03/19 15:29 Lorazepam (Ativan 2mg/ml 1ml) 1 mg Q6H PRN IV For Anxiety 03/06/19 19:00 03/13/19 18:59 03/09/19 14:10 Morphine Sulfate (Morphine Sulfate) 2 mg Q4H PRN IVP severe Pain (Pain Scale 7-10) 03/04/19 15:30 03/11/19 15:29 03/09/19 12:25 Nitroglycerin (Ntg) 0.4 mg Q5M X 3 DOSES PRN SL Prn Chest Pain 03/04/19 15:30 04/03/19 15:29 Ondansetron HCl (Zofran) 4 mg Q6H PRN IVP Nausea & Vomiting 03/04/19 15:30 04/03/19 15:29 Polyethylene Glycol (Miralax) 17 gm HSPRN PRN ORAL Constipation 03/04/19 15:30 04/03/19 15:29 Quetiapine Fumarate (SEROquel) 50 mg Q12HR ORAL 03/08/19 21:00 04/07/19 20:59 03/09/19 08:27 Quetiapine Fumarate (SEROquel) 100 mg BIDPRN PRN ORAL Agitation 03/06/19 19:00 04/05/19 18:59 03/06/19 19:06 Temazepam (Restoril) 15 mg HSPRN PRN ORAL Insomnia 03/04/19 21:00 03/11/19 20:59 Allergies: Coded Allergies: No Known Allergies (Unverified , 03/04/19) ROS Limited/Unobtainable: Yes Subjective 43 YO M admitted with abdominal pain, nausea and vomiting. Now foreign body in intestine and colon with perforated viscus. Cover for [facility] Med-Dr Flores. Staff reports patient talking to himself. Objective Last Vital Signs Date Time Temp Pulse Resp B/P (MAP) Pulse Ox O2 Delivery O2 Flow Rate FiO2 03/09/19 12:25 98.0 03/09/19 12:00 67 20 101/68 (79) 99 03/09/19 09:00 Room Air Intake and Output 03/08/19 03/09/19 19:00 07:00 Intake Total 260 ml 1100 ml Balance 260 ml 1100 ml Intake Oral 260 ml 1100 ml # Voids 3 3 Objective PHYSICAL EXAMINATION: GENERAL: The patient is well-developed and well-nourished, confused male, in no apparent distress HEENT: Eyes, pupils are equal and responsive to light and accommodation. Extraocular movements are intact. NECK: Supple without lymphadenopathy. CHEST: Lungs are clear to auscultation bilaterally without wheezes or rales. CARDIOVASCULAR: Regular rhythm and rate. S1 and S2 normal without murmurs, rubs, or gallops. ABDOMEN: Soft, nontender, and nondistended. Positive bowel sounds. No evidence of hepatosplenomegaly. Currently, no rebound or guarding noted. EXTREMITIES: Negative for clubbing, cyanosis, or edema. RECTAL/GENITAL: Refused. NEUROLOGIC: Cranial nerves II through XII are grossly intact without focal deficits. Motor strength is 5/5 bilaterally. Deep tendon reflexes are 2+ plantar. Assessment/Plan Assessment/Plan ASSESSMENT: This is a 43-year-old male. 1. Abdominal pain. 2. Nausea with vomiting. 3. Perforated abdominal viscus. 4. Asthma. 5. Hypertension. 6. Diabetes type 2. 7. foreign object in sm intestine and colon 8. Schizophrenia TREATMENT: 1. Abdominal pain/nausea/vomiting/perforated viscus. A General Surgery consultation has been obtained with Dr. Tsang. We will follow recommendations of Surgery. The patient is currently tolerating diet. 2. Asthma. 3. Hypertension. The patient is currently normotensive, off medication. 4. History of diabetes type 2. The patient's blood sugar is currently normal. 5. Start Seroquel for auditory hallucinations-psychiatric consult 6. Discharge planning Valerio Daniel MD Mar 09, 2019 17:18
--- NOTE | 2019-03-09 19:13 | NUR ---
HAND-OFF: Report given to LEN Saenz.
--- NOTE | 2019-03-09 19:30 | NUR ---
NURSE NOTES: Received patient from LEN Helton. Patient is on the bed in high-mao position. Patient is breathing unlabored and evenly without signs distress, discomfort, or SOB at the time of handoff. No pain noted at this time. Patient verbally claimed that his pain was well controlled with new medication prescribed. Bed is placed at the lowest with alarms and brakes on with two siderails up for safety. Patient was re-educated to press the call light whenever assistance is needed. Call light was placed within the reach. Will continue to monitor. Addendum: 03/09/19 at 1999 by Lou Odom RN Please disregard. Charted on the incorrect patient.
--- NOTE | 2019-03-09 19:35 | NUR ---
NURSE NOTES: Received patient from LEN Gonzalez. Patient was found ambulating around the sears with steady gait. Patient was reminded to not go into other patient's rooms. Patient was re-educated to call the call light for any assistance needed. Patient is breathing unlabored and evenly without signs of distress, discomfort, or SOB. No pain noted at this time. Patient was offered snacks as requested. All current needs were met at the time of handoff. Will continue monitor.
[2019-03-09 20:00] VITALS: BP 112/70
[2019-03-10] VITALS: BP 125/59
--- NOTE | 2019-03-10 03:34 | NUR ---
NURSE NOTES: Patient is self-positioned on the bed and occasionally ambulates around [address]. Patient performs steady gait. Patient is breathing unlabored and evenly without signs of distress, discomfort, or SOB. Patient bed is placed at the lowest level with two side rails up for safety measures. Reinforced to use a call light whenever assistance is needed. Call light is placed within reach. Will continue to monitor.
[2019-03-10 04:00] VITALS: BP 109/58
[2019-03-10] MEDS: Clindamycin 150mg cap ORAL SCH ×3 (05:29→20:52)
--- NOTE | 2019-03-10 07:28 | NUR ---
NURSE NOTES: AWAKE/ALERT. IN NO APPARENT DISTRESS.
--- NOTE | 2019-03-10 07:30 | NUR ---
HAND-OFF: Report given to LEN Nur. Patient in stable condition.
[2019-03-10 08:00] VITALS: BP 96/71
--- NOTE | 2019-03-10 09:52 | General Progress Note ---
Assessment/Plan Problem List: (1) Psychiatric disorder ICD Codes: F99 - Mental disorder, not otherwise specified SNOMED: 26109280 (2) Foreign body in intestine and colon ICD Codes: T18.3XXA - Foreign body in small intestine, initial encounter; T18.4XXA - Foreign body in colon, initial encounter SNOMED: 064830366 (3) Intra-abdominal free air of unknown etiology ICD Codes: K66.8 - Other specified disorders of peritoneum SNOMED: 82220795 Assessment/Plan: surg in put appreciated on reg diet no need for GI procedures repeat labs Subjective ROS Limited/Unobtainable: Yes Allergies: Coded Allergies: No Known Allergies (Unverified , 03/04/19) Objective Last 24 Hour Vital Signs Date Time Temp Pulse Resp B/P (MAP) Pulse Ox O2 Delivery O2 Flow Rate FiO2 03/10/19 08:58 Room Air 03/10/19 08:00 98.3 71 18 96/71 (79) 98 03/10/19 04:00 98.0 70 18 109/58 (75) 98 03/10/19 00:00 98.4 73 18 125/59 (81) 97 03/09/19 21:00 Room Air 03/09/19 20:00 98.8 84 18 112/70 (84) 98 03/09/19 16:00 98.6 73 20 105/54 (71) 99 03/09/19 12:25 98.0 03/09/19 12:00 98.0 67 20 101/68 (79) 99 Intake and Output 03/09/19 03/10/19 18:59 06:59 Intake Total 1680 ml Balance 1680 ml Intake Oral 1680 ml # Voids 4 4 # Bowel Movements 1 Height (Feet): 5 Height (Inches): 9.00 Weight (Pounds): 187 General Appearance: alert EENT: normal ENT inspection Neck: supple Cardiovascular: normal rate Respiratory/Chest: decreased breath sounds Abdomen: normal bowel sounds, non tender, soft Extremities: non-tender Sami Sears MD Mar 10, 2019 09:52
--- NOTE | 2019-03-10 09:58 | NUR ---
*-* INSURANCE *-* UPDATED CLINICALS HAVE BEEN FAXED TO: IPA: SHELLEY GONZALEZ P: [phone] [id number] F: [phone] ROSALIAM: BRAYAN BARKER
--- NOTE | 2019-03-10 10:44 | Pulmonology Progress Note ---
Assessment/Plan Problems: (1) Psychiatric disorder (2) Foreign body in intestine and colon Assessment/Plan walking in the hallway add zaheer dc planning social service consult appreciated. Subjective Interval Events: late note for 03/09 Allergies: Coded Allergies: No Known Allergies (Unverified , 03/04/19) Objective Last 24 Hour Vital Signs Date Time Temp Pulse Resp B/P (MAP) Pulse Ox O2 Delivery O2 Flow Rate FiO2 03/10/19 08:58 Room Air 03/10/19 08:00 98.3 71 18 96/71 (79) 98 03/10/19 04:00 98.0 70 18 109/58 (75) 98 03/10/19 00:00 98.4 73 18 125/59 (81) 97 03/09/19 21:00 Room Air 03/09/19 20:00 98.8 84 18 112/70 (84) 98 03/09/19 16:00 98.6 73 20 105/54 (71) 99 03/09/19 12:25 98.0 03/09/19 12:00 98.0 67 20 101/68 (79) 99 Intake and Output 03/09/19 03/10/19 18:59 06:59 Intake Total 1680 ml Balance 1680 ml Intake Oral 1680 ml # Voids 4 4 # Bowel Movements 1 Objective eating well General Appearance: WD/WN, no acute distress Respiratory/Chest: chest wall non-tender, lungs clear Cardiovascular: normal peripheral pulses, regularly irregular Abdomen: normal bowel sounds, no organomegaly Genitourinary: normal external genitalia Extremities: no cyanosis Skin: no rash, no ulcers Current Medications Medications (Trade) Dose Ordered Sig/Elicia Route PRN Reason Start Time Stop Time Status Last Admin Dose Admin Acetaminophen (Tylenol) 650 mg Q4H PRN ORAL fever (temp>100.5 F) 03/04/19 15:30 04/03/19 15:29 03/09/19 01:32 Clindamycin HCl (Cleocin) 450 mg EVERY 8 HOURS ORAL 03/05/19 14:00 03/12/19 13:59 03/10/19 05:29 Dextrose (Dextrose 50%) 25 ml Q30M PRN IV Hypoglycemia 03/04/19 15:30 04/03/19 15:29 Dextrose (Dextrose 50%) 50 ml Q30M PRN IV Hypoglycemia 03/04/19 15:30 04/03/19 15:29 Diphenhydramine HCl (Benadryl) 25 mg Q6H PRN ORAL Itching/Pruritis 03/04/19 15:30 04/03/19 15:29 Lorazepam (Ativan 2mg/ml 1ml) 1 mg Q6H PRN IV For Anxiety 03/06/19 19:00 03/13/19 18:59 03/09/19 14:10 Morphine Sulfate (Morphine Sulfate) 2 mg Q4H PRN IVP severe Pain (Pain Scale 7-10) 03/04/19 15:30 03/11/19 15:29 03/09/19 12:25 Nitroglycerin (Ntg) 0.4 mg Q5M X 3 DOSES PRN SL Prn Chest Pain 03/04/19 15:30 04/03/19 15:29 Ondansetron HCl (Zofran) 4 mg Q6H PRN IVP Nausea & Vomiting 03/04/19 15:30 04/03/19 15:29 Polyethylene Glycol (Miralax) 17 gm HSPRN PRN ORAL Constipation 03/04/19 15:30 04/03/19 15:29 Quetiapine Fumarate (SEROquel) 50 mg Q12HR ORAL 03/08/19 21:00 04/07/19 20:59 03/10/19 08:32 Quetiapine Fumarate (SEROquel) 100 mg BIDPRN PRN ORAL Agitation 03/06/19 19:00 04/05/19 18:59 03/06/19 19:06 Temazepam (Restoril) 15 mg HSPRN PRN ORAL Insomnia 03/04/19 21:00 03/11/19 20:59 03/10/19 00:57 Tamera Bhatti MD Mar 10, 2019 10:44
--- NOTE | 2019-03-10 10:46 | Pulmonology Progress Note ---
Assessment/Plan Problems: (1) Psychiatric disorder (2) Foreign body in intestine and colon Assessment/Plan walking in the hallway add seroquel eating a lot talks to himself at times social service consult appreciated. Subjective ROS Limited/Unobtainable: No Constitutional: Reports: no symptoms Respiratory: Reports: no symptoms Gastrointestinal/Abdominal: Reports: no symptoms Allergies: Coded Allergies: No Known Allergies (Unverified , 03/04/19) Objective Last 24 Hour Vital Signs Date Time Temp Pulse Resp B/P (MAP) Pulse Ox O2 Delivery O2 Flow Rate FiO2 03/10/19 08:58 Room Air 03/10/19 08:00 98.3 71 18 96/71 (79) 98 03/10/19 04:00 98.0 70 18 109/58 (75) 98 03/10/19 00:00 98.4 73 18 125/59 (81) 97 03/09/19 21:00 Room Air 03/09/19 20:00 98.8 84 18 112/70 (84) 98 03/09/19 16:00 98.6 73 20 105/54 (71) 99 03/09/19 12:25 98.0 03/09/19 12:00 98.0 67 20 101/68 (79) 99 Intake and Output 03/09/19 03/10/19 18:59 06:59 Intake Total 1680 ml Balance 1680 ml Intake Oral 1680 ml # Voids 4 4 # Bowel Movements 1 Objective eating well General Appearance: WD/WN, no acute distress HEENT: atraumatic, anicteric Respiratory/Chest: chest wall non-tender, lungs clear Cardiovascular: normal peripheral pulses, normal rate, regular rhythm Abdomen: normal bowel sounds Genitourinary: normal external genitalia Skin: no rash, no ulcers Current Medications Medications (Trade) Dose Ordered Sig/Elicia Route PRN Reason Start Time Stop Time Status Last Admin Dose Admin Acetaminophen (Tylenol) 650 mg Q4H PRN ORAL fever (temp>100.5 F) 03/04/19 15:30 04/03/19 15:29 03/09/19 01:32 Clindamycin HCl (Cleocin) 450 mg EVERY 8 HOURS ORAL 03/05/19 14:00 03/12/19 13:59 03/10/19 05:29 Dextrose (Dextrose 50%) 25 ml Q30M PRN IV Hypoglycemia 03/04/19 15:30 04/03/19 15:29 Dextrose (Dextrose 50%) 50 ml Q30M PRN IV Hypoglycemia 03/04/19 15:30 04/03/19 15:29 Diphenhydramine HCl (Benadryl) 25 mg Q6H PRN ORAL Itching/Pruritis 03/04/19 15:30 04/03/19 15:29 Lorazepam (Ativan 2mg/ml 1ml) 1 mg Q6H PRN IV For Anxiety 03/06/19 19:00 03/13/19 18:59 03/09/19 14:10 Morphine Sulfate (Morphine Sulfate) 2 mg Q4H PRN IVP severe Pain (Pain Scale 7-10) 03/04/19 15:30 03/11/19 15:29 03/09/19 12:25 Nitroglycerin (Ntg) 0.4 mg Q5M X 3 DOSES PRN SL Prn Chest Pain 03/04/19 15:30 04/03/19 15:29 Ondansetron HCl (Zofran) 4 mg Q6H PRN IVP Nausea & Vomiting 03/04/19 15:30 04/03/19 15:29 Polyethylene Glycol (Miralax) 17 gm HSPRN PRN ORAL Constipation 03/04/19 15:30 04/03/19 15:29 Quetiapine Fumarate (SEROquel) 50 mg Q12HR ORAL 03/08/19 21:00 04/07/19 20:59 03/10/19 08:32 Quetiapine Fumarate (SEROquel) 100 mg BIDPRN PRN ORAL Agitation 03/06/19 19:00 04/05/19 18:59 03/06/19 19:06 Temazepam (Restoril) 15 mg HSPRN PRN ORAL Insomnia 03/04/19 21:00 03/11/19 20:59 03/10/19 00:57 Tamera Bhatti MD Mar 10, 2019 10:45
[2019-03-10 11:59] VITALS: BP 127/68
--- NOTE | 2019-03-10 12:40 | Internal Med Progress Note ---
Subjective Date of Service: Mar 10, 2019 Physician Name MaríaValerio Attending Physician Bill Flores MD Current Medications Medications (Trade) Dose Ordered Sig/Elicia Route PRN Reason Start Time Stop Time Status Last Admin Dose Admin Acetaminophen (Tylenol) 650 mg Q4H PRN ORAL fever (temp>100.5 F) 03/04/19 15:30 04/03/19 15:29 03/09/19 01:32 Clindamycin HCl (Cleocin) 450 mg EVERY 8 HOURS ORAL 03/05/19 14:00 03/12/19 13:59 03/10/19 05:29 Dextrose (Dextrose 50%) 25 ml Q30M PRN IV Hypoglycemia 03/04/19 15:30 04/03/19 15:29 Dextrose (Dextrose 50%) 50 ml Q30M PRN IV Hypoglycemia 03/04/19 15:30 04/03/19 15:29 Diphenhydramine HCl (Benadryl) 25 mg Q6H PRN ORAL Itching/Pruritis 03/04/19 15:30 04/03/19 15:29 Lorazepam (Ativan 2mg/ml 1ml) 1 mg Q6H PRN IV For Anxiety 03/06/19 19:00 03/13/19 18:59 03/09/19 14:10 Morphine Sulfate (Morphine Sulfate) 2 mg Q4H PRN IVP severe Pain (Pain Scale 7-10) 03/04/19 15:30 03/11/19 15:29 03/09/19 12:25 Nitroglycerin (Ntg) 0.4 mg Q5M X 3 DOSES PRN SL Prn Chest Pain 03/04/19 15:30 04/03/19 15:29 Ondansetron HCl (Zofran) 4 mg Q6H PRN IVP Nausea & Vomiting 03/04/19 15:30 04/03/19 15:29 Polyethylene Glycol (Miralax) 17 gm HSPRN PRN ORAL Constipation 03/04/19 15:30 04/03/19 15:29 Quetiapine Fumarate (SEROquel) 50 mg Q12HR ORAL 03/08/19 21:00 04/07/19 20:59 03/10/19 08:32 Quetiapine Fumarate (SEROquel) 100 mg BIDPRN PRN ORAL Agitation 03/06/19 19:00 04/05/19 18:59 03/06/19 19:06 Temazepam (Restoril) 15 mg HSPRN PRN ORAL Insomnia 03/04/19 21:00 03/11/19 20:59 03/10/19 00:57 Allergies: Coded Allergies: No Known Allergies (Unverified , 03/04/19) ROS Limited/Unobtainable: No Constitutional: Reports: no symptoms HEENT: Reports: no symptoms Cardiovascular: Reports: no symptoms Respiratory: Reports: no symptoms Gastrointestinal/Abdominal: Reports: no symptoms Genitourinary: Reports: no symptoms Neurologic/Psychiatric: Reports: no symptoms Subjective 43 YO M admitted with abdominal pain, nausea and vomiting. Now foreign body in intestine and colon with perforated viscus. Cover for Int Med-Dr Flores. Staff reports patient talking to himself; await psych consult Objective Last Vital Signs Date Time Temp Pulse Resp B/P (MAP) Pulse Ox O2 Delivery O2 Flow Rate FiO2 03/10/19 11:59 98.1 81 20 127/68 (87) 98 03/10/19 08:58 Room Air Intake and Output 03/09/19 03/10/19 19:00 07:00 Intake Total 1680 ml Balance 1680 ml Intake Oral 1680 ml # Voids 4 4 # Bowel Movements 1 Objective PHYSICAL EXAMINATION: GENERAL: The patient is well-developed and well-nourished, confused male, in no apparent distress HEENT: Eyes, pupils are equal and responsive to light and accommodation. Extraocular movements are intact. NECK: Supple without lymphadenopathy. CHEST: Lungs are clear to auscultation bilaterally without wheezes or rales. CARDIOVASCULAR: Regular rhythm and rate. S1 and S2 normal without murmurs, rubs, or gallops. ABDOMEN: Soft, nontender, and nondistended. Positive bowel sounds. No evidence of hepatosplenomegaly. Currently, no rebound or guarding noted. EXTREMITIES: Negative for clubbing, cyanosis, or edema. RECTAL/GENITAL: Refused. NEUROLOGIC: Cranial nerves II through XII are grossly intact without focal deficits. Motor strength is 5/5 bilaterally. Deep tendon reflexes are 2+ plantar. Assessment/Plan Assessment/Plan ASSESSMENT: This is a 43-year-old male. 1. Abdominal pain. 2. Nausea with vomiting. 3. Perforated abdominal viscus. 4. Asthma. 5. Hypertension. 6. Diabetes type 2. 7. foreign object in sm intestine and colon 8. Schizophrenia TREATMENT: 1. Abdominal pain/nausea/vomiting/perforated viscus. A General Surgery consultation has been obtained with Dr. Tsang. We will follow recommendations of Surgery. The patient is currently tolerating diet. 2. Asthma. 3. Hypertension. The patient is currently normotensive, off medication. 4. History of diabetes type 2. The patient's blood sugar is currently normal. 5. Start Seroquel for auditory hallucinations-psychiatric consult=Dr Palacio 6. Discharge planning Valerio Daniel MD Mar 10, 2019 12:40
--- NOTE | 2019-03-10 13:12 | NUR ---
[employer] NP SI:FOREIGN BODY IN INTESTINES AND COLON VS: BP 96/71, P 70, T 98.0, RR 20, SpO2 98 IS:RESTORIL 15mg CLINDAMYCIN 450mg SEROQUEL 50mg MED/SURG STATUS
[2019-03-10 16:00] VITALS: BP 115/64
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
--- NOTE | 2019-03-10 19:18 | NUR ---
NURSE NOTES: quiet in bed. in no acute distress.
--- NOTE | 2019-03-10 19:31 | NUR ---
HAND-OFF: Report given to Alexis WOLFE RN.
[2019-03-10 20:00] VITALS: BP 110/61
--- NOTE | 2019-03-10 21:16 | NUR ---
NURSE NOTES: Pt is in bed, awake and verbal. Pt is ambulatory. Vitals stable. Pt is asking for food frequently. Pt denies any pain. Pt is instructed to call for assistance before getting out of bed. Bed locked low in position,side rails up and call light within reach. Pt6 will be monitored.
[2019-03-11] VITALS: BP 131/55
--- NOTE | 2019-03-11 03:02 | NUR ---
NURSE NOTES: Pt is in bed, asleep. Wound dressing on the abdomen changed.
[2019-03-11 04:00] VITALS: BP 114/65
[2019-03-11] MEDS: Clindamycin 150mg cap ORAL SCH ×3 (05:47→22:12)
--- NOTE | 2019-03-11 06:00 | NUR ---
NURSE NOTES: IV access established on right hand 24G; asymptomatic and patent.
--- NOTE | 2019-03-11 07:12 | NUR ---
HAND-OFF: Report given to LEN Helton.
--- NOTE | 2019-03-11 07:30 | NUR ---
NURSE NOTES: Received pt from RN HARIS. Pt is confused and orient x2. pt is in RA, No SOB or acute respiratory distress noted. pt has intact iv access RH 24G SL. Pt is eating breakfast independently. all needs attended, bed is locked and is in the lowest position. call light within easy reach. will continue to monitor.
[2019-03-11 07:40] LABS: BASOPHILS % (AUTO) 1.6 % (0.0-2.0); HEMATOCRIT 35.1 % (42.0-52.0); HEMOGLOBIN 11.3 G/DL (14.2-18.0); LYMPHOCYTES % (AUTO) 46.4 % (20.0-45.0); MEAN CORPUSCULAR VOLUME 95 FL (80-99); MONOCYTES % (AUTO) 11.2 % (1.0-10.0); NEUTROPHILS % (AUTO) 32.8 % (45.0-75.0); PLATELET COUNT 340 K/UL (150-450); RED BLOOD COUNT 3.68 M/UL (4.70-6.10); RED CELL DISTRIBUTION WIDTH 15.6 % (11.6-14.8)
[2019-03-11 08:00] VITALS: BP 119/63
--- NOTE | 2019-03-11 08:28 | General Progress Note ---
Assessment/Plan Problem List: (1) Psychiatric disorder ICD Codes: F99 - Mental disorder, not otherwise specified SNOMED: 24836214 (2) Foreign body in intestine and colon ICD Codes: T18.3XXA - Foreign body in small intestine, initial encounter; T18.4XXA - Foreign body in colon, initial encounter SNOMED: 450151019 (3) Intra-abdominal free air of unknown etiology ICD Codes: K66.8 - Other specified disorders of peritoneum SNOMED: 88990632 Assessment/Plan: surg in put appreciated on reg diet no need for GI procedures repeat labs Subjective ROS Limited/Unobtainable: Yes Allergies: Coded Allergies: No Known Allergies (Unverified , 03/04/19) Objective Last 24 Hour Vital Signs Date Time Temp Pulse Resp B/P (MAP) Pulse Ox O2 Delivery O2 Flow Rate FiO2 03/11/19 04:00 97.6 70 18 114/65 (81) 98 03/11/19 00:00 98.8 85 18 131/55 (80) 98 03/10/19 21:00 Room Air 03/10/19 20:00 100.0 78 18 110/61 (77) 98 03/10/19 16:00 97.9 80 18 115/64 (81) 99 03/10/19 11:59 98.1 81 20 127/68 (87) 98 03/10/19 08:58 Room Air Intake and Output 03/10/19 03/11/19 18:59 06:59 Intake Total 400 ml Balance 400 ml Intake Oral 400 ml # Voids 2 4 # Bowel Movements 1 Laboratory Tests 03/11/19 05:23: White Blood Count 7.0, Red Blood Count 3.68L, Hemoglobin 11.3L, Hematocrit 35.1L , Mean Corpuscular Volume 95, Mean Corpuscular Hemoglobin 30.8, Mean Corpuscular Hemoglobin Concent 32.3, Red Cell Distribution Width 15.6H, Platelet Count 340, Mean Platelet Volume 8.1, Neutrophils (%) (Auto) 32.8L, Lymphocytes (%) (Auto) 46.4H, Monocytes (%) (Auto) 11.2H, Eosinophils (%) (Auto ) 8.0H, Basophils (%) (Auto) 1.6 Height (Feet): 5 Height (Inches): 9.00 Weight (Pounds): 187 General Appearance: alert EENT: normal ENT inspection Neck: supple Cardiovascular: normal rate Respiratory/Chest: decreased breath sounds Abdomen: normal bowel sounds, non tender, soft Extremities: non-tender Sami Sears MD Mar 11, 2019 08:28
[2019-03-11 12:00] VITALS: BP 119/55
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
--- NOTE | 2019-03-11 13:23 | NUR ---
*-* INSURANCE *-* UPDATED CLINICALS HAVE BEEN FAXED TO: IPA: SHELLEY GONZALEZ P: [phone] [id number] F: [phone] ROSALIAM: BRAYAN BARKER
--- NOTE | 2019-03-11 13:29 | Pulmonology Progress Note ---
Assessment/Plan Problems: (1) Psychiatric disorder (2) Foreign body in intestine and colon Assessment/Plan walking in the hallway add seroqueyaw eating a lot talks to himself at times social service consult appreciated. awaiting psych evaluation. Subjective ROS Limited/Unobtainable: No Constitutional: Reports: no symptoms HEENT: Repors: no symptoms Respiratory: Reports: no symptoms Allergies: Coded Allergies: No Known Allergies (Unverified , 03/04/19) Objective Last 24 Hour Vital Signs Date Time Temp Pulse Resp B/P (MAP) Pulse Ox O2 Delivery O2 Flow Rate FiO2 03/11/19 12:00 97.9 64 19 119/55 (76) 99 03/11/19 09:00 Room Air 03/11/19 08:00 97.7 76 20 119/63 (81) 94 03/11/19 04:00 97.6 70 18 114/65 (81) 98 03/11/19 00:00 98.8 85 18 131/55 (80) 98 03/10/19 21:00 Room Air 03/10/19 20:00 100.0 78 18 110/61 (77) 98 03/10/19 16:00 97.9 80 18 115/64 (81) 99 Intake and Output 03/10/19 03/11/19 18:59 06:59 Intake Total 400 ml Balance 400 ml Intake Oral 400 ml # Voids 2 4 # Bowel Movements 1 Objective eating well General Appearance: WD/WN HEENT: atraumatic, anicteric Respiratory/Chest: chest wall non-tender, lungs clear Cardiovascular: normal rate, regular rhythm Abdomen: normal bowel sounds, soft, non tender Extremities: no cyanosis Laboratory Tests 03/11/19 05:23: White Blood Count 7.0, Red Blood Count 3.68L, Hemoglobin 11.3L, Hematocrit 35.1L , Mean Corpuscular Volume 95, Mean Corpuscular Hemoglobin 30.8, Mean Corpuscular Hemoglobin Concent 32.3, Red Cell Distribution Width 15.6H, Platelet Count 340, Mean Platelet Volume 8.1, Neutrophils (%) (Auto) 32.8L, Lymphocytes (%) (Auto) 46.4H, Monocytes (%) (Auto) 11.2H, Eosinophils (%) (Auto ) 8.0H, Basophils (%) (Auto) 1.6 Current Medications Medications (Trade) Dose Ordered Sig/Elicia Route PRN Reason Start Time Stop Time Status Last Admin Dose Admin Acetaminophen (Tylenol) 650 mg Q4H PRN ORAL fever (temp>100.5 F) 03/04/19 15:30 04/03/19 15:29 03/09/19 01:32 Clindamycin HCl (Cleocin) 450 mg EVERY 8 HOURS ORAL 03/05/19 14:00 03/12/19 13:59 03/11/19 05:47 Dextrose (Dextrose 50%) 25 ml Q30M PRN IV Hypoglycemia 03/04/19 15:30 04/03/19 15:29 Dextrose (Dextrose 50%) 50 ml Q30M PRN IV Hypoglycemia 03/04/19 15:30 04/03/19 15:29 Diphenhydramine HCl (Benadryl) 25 mg Q6H PRN ORAL Itching/Pruritis 03/04/19 15:30 04/03/19 15:29 03/10/19 20:52 Lorazepam (Ativan 2mg/ml 1ml) 1 mg Q6H PRN IV For Anxiety 03/06/19 19:00 03/13/19 18:59 03/09/19 14:10 Morphine Sulfate (Morphine Sulfate) 2 mg Q4H PRN IVP severe Pain (Pain Scale 7-10) 03/04/19 15:30 03/11/19 15:29 03/09/19 12:25 Nitroglycerin (Ntg) 0.4 mg Q5M X 3 DOSES PRN SL Prn Chest Pain 03/04/19 15:30 04/03/19 15:29 Ondansetron HCl (Zofran) 4 mg Q6H PRN IVP Nausea & Vomiting 03/04/19 15:30 04/03/19 15:29 Polyethylene Glycol (Miralax) 17 gm HSPRN PRN ORAL Constipation 03/04/19 15:30 04/03/19 15:29 Quetiapine Fumarate (SEROquel) 50 mg Q12HR ORAL 03/08/19 21:00 04/07/19 20:59 03/11/19 08:16 Quetiapine Fumarate (SEROquel) 100 mg BIDPRN PRN ORAL Agitation 03/06/19 19:00 04/05/19 18:59 03/06/19 19:06 Temazepam (Restoril) 15 mg HSPRN PRN ORAL Insomnia 03/04/19 21:00 03/11/19 20:59 03/10/19 20:52 Tamera Bhatti MD Mar 11, 2019 13:29
[2019-03-11] MEDS ORDERED: Haloperidol Decanoate 50mg Inj IM SCH (15:00)
--- NOTE | 2019-03-11 15:14 | NUR ---
Social Service Note Referral faxed to [facility] [phone] (p) [phone] (f). Will follow up.
[2019-03-11 16:00] VITALS: BP 113/54
--- NOTE | 2019-03-11 16:14 | NUR ---
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
--- NOTE | 2019-03-11 17:02 | Internal Med Progress Note ---
Subjective Date of Service: Mar 11, 2019 Physician Name Daniel,Valerio Attending Physician Bill Flores MD Current Medications Medications (Trade) Dose Ordered Sig/Elicia Route PRN Reason Start Time Stop Time Status Last Admin Dose Admin Acetaminophen (Tylenol) 650 mg Q4H PRN ORAL fever (temp>100.5 F) 03/04/19 15:30 04/03/19 15:29 03/09/19 01:32 Clindamycin HCl (Cleocin) 450 mg EVERY 8 HOURS ORAL 03/05/19 14:00 03/12/19 13:59 03/11/19 13:37 Dextrose (Dextrose 50%) 25 ml Q30M PRN IV Hypoglycemia 03/04/19 15:30 04/03/19 15:29 Dextrose (Dextrose 50%) 50 ml Q30M PRN IV Hypoglycemia 03/04/19 15:30 04/03/19 15:29 Diphenhydramine HCl (Benadryl) 25 mg Q6H PRN ORAL Itching/Pruritis 03/04/19 15:30 04/03/19 15:29 03/10/19 20:52 Haloperidol Decanoate (Haldol) 50 mg ONCE IM 03/11/19 15:00 03/11/19 23:59 03/11/19 15:36 Lorazepam (Ativan 2mg/ml 1ml) 1 mg Q6H PRN IV For Anxiety 03/06/19 19:00 03/13/19 18:59 03/09/19 14:10 Nitroglycerin (Ntg) 0.4 mg Q5M X 3 DOSES PRN SL Prn Chest Pain 03/04/19 15:30 04/03/19 15:29 Ondansetron HCl (Zofran) 4 mg Q6H PRN IVP Nausea & Vomiting 03/04/19 15:30 04/03/19 15:29 Polyethylene Glycol (Miralax) 17 gm HSPRN PRN ORAL Constipation 03/04/19 15:30 04/03/19 15:29 Risperidone (RisperDAL) 2 mg QHS ORAL 03/11/19 21:00 04/10/19 20:59 Temazepam (Restoril) 15 mg HSPRN PRN ORAL Insomnia 03/04/19 21:00 03/11/19 20:59 03/10/19 20:52 Allergies: Coded Allergies: No Known Allergies (Unverified , 03/04/19) ROS Limited/Unobtainable: No Constitutional: Reports: no symptoms HEENT: Reports: no symptoms Cardiovascular: Reports: no symptoms Respiratory: Reports: no symptoms Gastrointestinal/Abdominal: Reports: abdominal pain Genitourinary: Reports: no symptoms Neurologic/Psychiatric: Reports: no symptoms Subjective 43 YO M admitted with abdominal pain, nausea and vomiting. Now foreign body in intestine and colon with perforated viscus. Cover for Int Med-Dr Flores. Staff reports patient talking to himself; had psych consult 03/11/19. Await transfer to inpatient psych unit Objective Last Vital Signs Date Time Temp Pulse Resp B/P (MAP) Pulse Ox O2 Delivery O2 Flow Rate FiO2 03/11/19 12:00 97.9 64 19 119/55 (76) 99 03/11/19 09:00 Room Air Laboratory Tests Test 03/11/19 05:23 White Blood Count 7.0 K/UL (4.8-10.8) Red Blood Count 3.68 M/UL (4.70-6.10) L Hemoglobin 11.3 G/DL (14.2-18.0) L Hematocrit 35.1 % (42.0-52.0) L Mean Corpuscular Volume 95 FL (80-99) Mean Corpuscular Hemoglobin 30.8 PG (27.0-31.0) Mean Corpuscular Hemoglobin Concent 32.3 G/DL (32.0-36.0) Red Cell Distribution Width 15.6 % (11.6-14.8) H Platelet Count 340 K/UL (150-450) Mean Platelet Volume 8.1 FL (6.5-10.1) Neutrophils (%) (Auto) 32.8 % (45.0-75.0) L Lymphocytes (%) (Auto) 46.4 % (20.0-45.0) H Monocytes (%) (Auto) 11.2 % (1.0-10.0) H Eosinophils (%) (Auto) 8.0 % (0.0-3.0) H Basophils (%) (Auto) 1.6 % (0.0-2.0) Intake and Output 03/10/19 03/11/19 19:00 07:00 Intake Total 400 ml Balance 400 ml Intake Oral 400 ml # Voids 2 4 # Bowel Movements 1 Objective PHYSICAL EXAMINATION: GENERAL: The patient is well-developed and well-nourished, confused male, in no apparent distress HEENT: Eyes, pupils are equal and responsive to light and accommodation. Extraocular movements are intact. NECK: Supple without lymphadenopathy. CHEST: Lungs are clear to auscultation bilaterally without wheezes or rales. CARDIOVASCULAR: Regular rhythm and rate. S1 and S2 normal without murmurs, rubs, or gallops. ABDOMEN: Soft, nontender, and nondistended. Positive bowel sounds. No evidence of hepatosplenomegaly. Currently, no rebound or guarding noted. EXTREMITIES: Negative for clubbing, cyanosis, or edema. RECTAL/GENITAL: Refused. NEUROLOGIC: Cranial nerves II through XII are grossly intact without focal deficits. Motor strength is 5/5 bilaterally. Deep tendon reflexes are 2+ plantar. Assessment/Plan Assessment/Plan ASSESSMENT: This is a 43-year-old male. 1. Abdominal pain. 2. Nausea with vomiting. 3. Perforated abdominal viscus. 4. Asthma. 5. Hypertension. 6. Diabetes type 2. 7. foreign object in sm intestine and colon 8. Schizophrenia TREATMENT: 1. Abdominal pain/nausea/vomiting/perforated viscus. A General Surgery consultation has been obtained with Dr. Tsang. We will follow recommendations of Surgery. The patient is currently tolerating diet. 2. Asthma. 3. Hypertension. The patient is currently normotensive, off medication. 4. History of diabetes type 2. The patient's blood sugar is currently normal. 5. D/C Seroquel; start risperdal for auditory hallucinations. See psychiatric consult=Dr Palacio 6. Discharge planning=transfer to inpatient psych unit when bed available. Valerio Daniel MD Mar 11, 2019 17:02
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
--- NOTE | 2019-03-11 17:22 | NUR ---
Social Service Note SW spoke with Isidra at [facility] patient doesn't met the criteria for voluntary admission, patient has not voiced SI with an active plan. MD's notified.
--- NOTE | 2019-03-11 19:30 | NUR ---
HAND-OFF: Report given to LEN MAJANO.
--- NOTE | 2019-03-11 19:32 | NUR ---
NURSE NOTES: Received patient in bed, ambulates in a hallway with a steady gate, no acute distress noted, patient is noted with intermittent confusion, on room air, bed is in low position, locked and alarm is on, will continue to monitor for safety and comfort.
[2019-03-11 20:00] VITALS: BP 115/63
[2019-03-12] VITALS: BP 111/50
[2019-03-12 04:00] VITALS: BP 122/71
[2019-03-12] MEDS: Clindamycin 150mg cap ORAL SCH ×3 (05:34→21:20)
[2019-03-12 06:33] LABS: BASOPHILS % (AUTO) 1.8 % (0.0-2.0); EOSINOPHILS % (AUTO) 8.1 % (0.0-3.0); HEMATOCRIT 34.5 % (42.0-52.0); HEMOGLOBIN 11.3 G/DL (14.2-18.0); LYMPHOCYTES % (AUTO) 34.8 % (20.0-45.0); MEAN CORPUSCULAR VOLUME 94 FL (80-99); MONOCYTES % (AUTO) 14.4 % (1.0-10.0); NEUTROPHILS % (AUTO) 40.9 % (45.0-75.0); PLATELET COUNT 331 K/UL (150-450); RED BLOOD COUNT 3.67 M/UL (4.70-6.10); RED CELL DISTRIBUTION WIDTH 15.3 % (11.6-14.8); WHITE BLOOD COUNT 7.4 K/UL (4.8-10.8)
--- NOTE | 2019-03-12 07:09 | NUR ---
HAND-OFF: Report given to Sunitha HARRINGTON.
--- NOTE | 2019-03-12 07:11 | NUR ---
NURSE NOTES: Received pt from LEN MAJANO. Pt is confused and orient x2. pt is in RA, No SOB or acute respiratory distress noted. pt has intact iv access LH 22G SL. Pt is eating breakfast independently. all needs attended, bed is locked and is in the lowest position. call light within easy reach. will continue to monitor.
[2019-03-12 07:13] LABS: ALANINE AMINOTRANSFERASE 134 U/L (12-78); ALBUMIN 2.8 G/DL (3.4-5.0); ALBUMIN/GLOBULIN RATIO 0.7 (1.0-2.7); ALKALINE PHOSPHATASE 74 U/L (46-116); ANION GAP 9 mmol/L (5-15); ASPARTATE AMINO TRANSFERASE 75 U/L (15-37); BILIRUBIN,TOTAL 0.2 MG/DL (0.2-1.0); BLOOD UREA NITROGEN 24 mg/dL (7-18); CALCIUM 8.9 MG/DL (8.5-10.1); CARBON DIOXIDE 25 MMOL/L (21-32); CHLORIDE 107 MMOL/L (98-107); POTASSIUM 4.3 MMOL/L (3.5-5.1); SODIUM 141 MMOL/L (136-145)
[2019-03-12 08:00] VITALS: BP 125/71
--- NOTE | 2019-03-12 08:12 | NUR ---
RADIOLOGY DEPT., CHEST X-RAY DONE.-P.DYE
--- NOTE | 2019-03-12 08:50 | General Progress Note ---
Assessment/Plan Problem List: (1) Psychiatric disorder ICD Codes: F99 - Mental disorder, not otherwise specified SNOMED: 93330075 (2) Foreign body in intestine and colon ICD Codes: T18.3XXA - Foreign body in small intestine, initial encounter; T18.4XXA - Foreign body in colon, initial encounter SNOMED: 956963146 (3) Intra-abdominal free air of unknown etiology ICD Codes: K66.8 - Other specified disorders of peritoneum SNOMED: 74484683 Assessment/Plan: surg in put appreciated on reg diet no need for GI procedures repeat labs Subjective ROS Limited/Unobtainable: Yes Allergies: Coded Allergies: No Known Allergies (Unverified , 03/04/19) Objective Last 24 Hour Vital Signs Date Time Temp Pulse Resp B/P (MAP) Pulse Ox O2 Delivery O2 Flow Rate FiO2 03/12/19 08:00 98.0 82 18 125/71 (89) 99 03/12/19 04:00 98.0 65 20 122/71 (88) 65 03/12/19 00:00 97.0 75 20 111/50 (70) 75 03/11/19 21:00 Room Air 03/11/19 20:00 98.2 71 20 115/63 (80) 71 03/11/19 16:00 98.6 74 19 113/54 (73) 98 03/11/19 12:00 97.9 64 19 119/55 (76) 99 03/11/19 09:00 Room Air Intake and Output 03/11/19 03/12/19 19:00 07:00 Intake Total 1000 ml Balance 1000 ml Intake Oral 1000 ml Laboratory Tests 03/12/19 06:00: White Blood Count 7.4, Red Blood Count 3.67L, Hemoglobin 11.3L, Hematocrit 34.5L , Mean Corpuscular Volume 94, Mean Corpuscular Hemoglobin 30.7, Mean Corpuscular Hemoglobin Concent 32.6, Red Cell Distribution Width 15.3H, Platelet Count 331, Mean Platelet Volume 8.7, Neutrophils (%) (Auto) 40.9L, Lymphocytes (%) (Auto) 34.8, Monocytes (%) (Auto) 14.4H, Eosinophils (%) (Auto) 8.1H, Basophils (%) (Auto) 1.8, Sodium Level 141, Potassium Level 4.3, Chloride Level 107, Carbon Dioxide Level 25, Anion Gap 9, Blood Urea Nitrogen 24H, Creatinine 1.0, Estimat Glomerular Filtration Rate > 60, Glucose Level 110H, Calcium Level 8.9, Total Bilirubin 0.2, Aspartate Amino Transf (AST/SGOT) 75H, Alanine Aminotransferase (ALT/SGPT) 134H, Alkaline Phosphatase 74, Total Protein 6.8, Albumin 2.8L, Globulin 4.0, Albumin/Globulin Ratio 0.7L Height (Feet): 5 Height (Inches): 9.00 Weight (Pounds): 187 General Appearance: alert EENT: normal ENT inspection Neck: supple Cardiovascular: normal rate Respiratory/Chest: lungs clear Abdomen: normal bowel sounds, non tender, soft Extremities: non-tender Sami Sears MD Mar 12, 2019 08:50
--- NOTE | 2019-03-12 11:23 | Diagnostic Imaging Report ---
Indication: Cough Technique: XRAY Chest 1v Comparison: None Findings: Heart size and mediastinal contours are within normal limits for AP technique. There is no focal airspace consolidation, pneumothorax or pleural effusion. No radiographic evidence of pulmonary edema. Osseous structures demonstrate no acute abnormality. Some surgical clips project over the left lateral lower chest. Impression: No radiographic evidence of acute cardiopulmonary disease. [place], no focal airspace consolidation as questioned clinically. Surgical clips project over the left lateral lower chest. Correlate with surgical history
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
[2019-03-12 12:00] VITALS: BP 120/70
--- NOTE | 2019-03-12 12:48 | Pulmonology Progress Note ---
Assessment/Plan Problems: (1) Psychiatric disorder (2) Foreign body in intestine and colon Assessment/Plan walking in the hallway add seroquel eating a lot talks to himself at times social service consult appreciated. awaiting psych evaluation. Subjective ROS Limited/Unobtainable: No Constitutional: Reports: no symptoms HEENT: Repors: no symptoms Allergies: Coded Allergies: No Known Allergies (Unverified , 03/04/19) Objective Last 24 Hour Vital Signs Date Time Temp Pulse Resp B/P (MAP) Pulse Ox O2 Delivery O2 Flow Rate FiO2 03/12/19 12:00 98.3 89 16 120/70 (87) 97 03/12/19 09:00 Room Air 03/12/19 08:00 98.0 82 18 125/71 (89) 99 03/12/19 04:00 98.0 65 20 122/71 (88) 65 03/12/19 00:00 97.0 75 20 111/50 (70) 75 03/11/19 21:00 Room Air 03/11/19 20:00 98.2 71 20 115/63 (80) 71 03/11/19 16:00 98.6 74 19 113/54 (73) 98 Intake and Output 03/11/19 03/12/19 18:59 06:59 Intake Total 1000 ml Balance 1000 ml Intake Oral 1000 ml Objective eating well General Appearance: no acute distress HEENT: normocephalic, anicteric Respiratory/Chest: chest wall non-tender, no accessory muscle use Cardiovascular: normal peripheral pulses, regular rhythm Abdomen: soft, non tender, no scars Extremities: no clubbing Skin: no lesions Laboratory Tests 03/12/19 06:00: White Blood Count 7.4, Red Blood Count 3.67L, Hemoglobin 11.3L, Hematocrit 34.5L , Mean Corpuscular Volume 94, Mean Corpuscular Hemoglobin 30.7, Mean Corpuscular Hemoglobin Concent 32.6, Red Cell Distribution Width 15.3H, Platelet Count 331, Mean Platelet Volume 8.7, Neutrophils (%) (Auto) 40.9L, Lymphocytes (%) (Auto) 34.8, Monocytes (%) (Auto) 14.4H, Eosinophils (%) (Auto) 8.1H, Basophils (%) (Auto) 1.8, Sodium Level 141, Potassium Level 4.3, Chloride Level 107, Carbon Dioxide Level 25, Anion Gap 9, Blood Urea Nitrogen 24H, Creatinine 1.0, Estimat Glomerular Filtration Rate > 60, Glucose Level 110H, Calcium Level 8.9, Total Bilirubin 0.2, Aspartate Amino Transf (AST/SGOT) 75H, Alanine Aminotransferase (ALT/SGPT) 134H, Alkaline Phosphatase 74, Total Protein 6.8, Albumin 2.8L, Globulin 4.0, Albumin/Globulin Ratio 0.7L Current Medications Medications (Trade) Dose Ordered Sig/Elicia Route PRN Reason Start Time Stop Time Status Last Admin Dose Admin Acetaminophen (Tylenol) 650 mg Q4H PRN ORAL fever (temp>100.5 F) 03/04/19 15:30 04/03/19 15:29 03/09/19 01:32 Clindamycin HCl (Cleocin) 450 mg EVERY 8 HOURS ORAL 03/05/19 14:00 03/12/19 23:59 03/12/19 05:34 Dextrose (Dextrose 50%) 25 ml Q30M PRN IV Hypoglycemia 03/04/19 15:30 04/03/19 15:29 Dextrose (Dextrose 50%) 50 ml Q30M PRN IV Hypoglycemia 03/04/19 15:30 04/03/19 15:29 Diphenhydramine HCl (Benadryl) 25 mg Q6H PRN ORAL Itching/Pruritis 03/04/19 15:30 04/03/19 15:29 03/10/19 20:52 Lorazepam (Ativan 2mg/ml 1ml) 1 mg Q6H PRN IV For Anxiety 03/06/19 19:00 03/13/19 18:59 03/09/19 14:10 Nitroglycerin (Ntg) 0.4 mg Q5M X 3 DOSES PRN SL Prn Chest Pain 03/04/19 15:30 04/03/19 15:29 Ondansetron HCl (Zofran) 4 mg Q6H PRN IVP Nausea & Vomiting 03/04/19 15:30 04/03/19 15:29 Polyethylene Glycol (Miralax) 17 gm HSPRN PRN ORAL Constipation 03/04/19 15:30 04/03/19 15:29 Risperidone (RisperDAL) 2 mg QHS ORAL 03/11/19 21:00 04/10/19 20:59 03/11/19 20:13 Tamera Bhatti MD Mar 12, 2019 12:48
[2019-03-12] MEDS ORDERED: RISPERDAL2 MG ORAL (12:51)
--- NOTE | 2019-03-12 13:22 | NUR ---
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
--- NOTE | 2019-03-12 14:45 | NUR ---
SS note Patient explained to this SW that he is willing to transfer to an Inpatient Psychiatric Unit. This Sw spoke with [facility] ([place]) who explains they are full. So Mike Childress/Nany will evaluate ([phone]); this Sw faxed chart information to [phone]. Pending evaluation at this time. Addendum: 03/12/19 at 1453 by MANN DANIELSON Addendum: Patient is willing to transfer to an inpatient Psychiatric unit Voluntarily.
--- NOTE | 2019-03-12 15:49 | NUR ---
RD ASSESSMENT & RECOMMENDATIONS SEE CARE ACTIVITY FOR COMPLETE ASSESSMENT DAILY ESTIMATED NEEDS: Needs based on Surgical wound 76kg adj 25-30 kcals/kg 5486-8211 total kcals 1.25-1.5 g protein/kg 95-114 g total protein 25-30 mL/kg 4731-6743 total fluid mLs NUTRITION DIAGNOSIS: Increased pro needs r/t surgical wound healing as evidenced by pt w/mid abdomen surgical scar, open per photo. CURRENT DIET: Regular soft easy chew PO DIET RECOMMENDATIONS: Regular diet as tolerated per GI ADDITIONAL RECOMMENDATIONS: 1) Obtain a standing weight 2) Wound healing: MVI x 1, Bj 1pkt BID -> rec WC eval for abdominal wound
[2019-03-12 16:00] VITALS: BP 124/80
--- NOTE | 2019-03-12 19:00 | Internal Med Progress Note ---
Subjective Date of Service: Mar 12, 2019 Physician Name Valerio Daniel Attending Physician Bill Flores MD Current Medications Medications (Trade) Dose Ordered Sig/Elicia Route PRN Reason Start Time Stop Time Status Last Admin Dose Admin Acetaminophen (Tylenol) 650 mg Q4H PRN ORAL fever (temp>100.5 F) 03/04/19 15:30 04/03/19 15:29 03/09/19 01:32 Clindamycin HCl (Cleocin) 450 mg EVERY 8 HOURS ORAL 03/05/19 14:00 03/12/19 23:59 03/12/19 13:18 Dextrose (Dextrose 50%) 25 ml Q30M PRN IV Hypoglycemia 03/04/19 15:30 04/03/19 15:29 Dextrose (Dextrose 50%) 50 ml Q30M PRN IV Hypoglycemia 03/04/19 15:30 04/03/19 15:29 Diphenhydramine HCl (Benadryl) 25 mg Q6H PRN ORAL Itching/Pruritis 03/04/19 15:30 04/03/19 15:29 03/10/19 20:52 Lorazepam (Ativan 2mg/ml 1ml) 1 mg Q6H PRN IV For Anxiety 03/06/19 19:00 03/13/19 18:59 03/09/19 14:10 Nitroglycerin (Ntg) 0.4 mg Q5M X 3 DOSES PRN SL Prn Chest Pain 03/04/19 15:30 04/03/19 15:29 Ondansetron HCl (Zofran) 4 mg Q6H PRN IVP Nausea & Vomiting 03/04/19 15:30 04/03/19 15:29 Polyethylene Glycol (Miralax) 17 gm HSPRN PRN ORAL Constipation 03/04/19 15:30 04/03/19 15:29 Risperidone (RisperDAL) 2 mg QHS ORAL 03/11/19 21:00 04/10/19 20:59 03/11/19 20:13 Allergies: Coded Allergies: No Known Allergies (Unverified , 03/04/19) ROS Limited/Unobtainable: No Constitutional: Reports: no symptoms HEENT: Reports: no symptoms Cardiovascular: Reports: no symptoms Respiratory: Reports: no symptoms Gastrointestinal/Abdominal: Reports: no symptoms Genitourinary: Reports: no symptoms Neurologic/Psychiatric: Reports: no symptoms Subjective 43 YO M admitted with abdominal pain, nausea and vomiting. Now foreign body in intestine and colon with perforated viscus. Cover for Int Med-Dr Flores. Staff reports patient talking to himself; had psych consult 03/11/19. Await transfer to inpatient psych unit Objective Last Vital Signs Date Time Temp Pulse Resp B/P (MAP) Pulse Ox O2 Delivery O2 Flow Rate FiO2 03/12/19 16:00 98.2 78 17 124/80 (95) 97 03/12/19 09:00 Room Air Laboratory Tests Test 03/12/19 06:00 White Blood Count 7.4 K/UL (4.8-10.8) Red Blood Count 3.67 M/UL (4.70-6.10) L Hemoglobin 11.3 G/DL (14.2-18.0) L Hematocrit 34.5 % (42.0-52.0) L Mean Corpuscular Volume 94 FL (80-99) Mean Corpuscular Hemoglobin 30.7 PG (27.0-31.0) Mean Corpuscular Hemoglobin Concent 32.6 G/DL (32.0-36.0) Red Cell Distribution Width 15.3 % (11.6-14.8) H Platelet Count 331 K/UL (150-450) Mean Platelet Volume 8.7 FL (6.5-10.1) Neutrophils (%) (Auto) 40.9 % (45.0-75.0) L Lymphocytes (%) (Auto) 34.8 % (20.0-45.0) Monocytes (%) (Auto) 14.4 % (1.0-10.0) H Eosinophils (%) (Auto) 8.1 % (0.0-3.0) H Basophils (%) (Auto) 1.8 % (0.0-2.0) Sodium Level 141 MMOL/L (136-145) Potassium Level 4.3 MMOL/L (3.5-5.1) Chloride Level 107 MMOL/L (98-107) Carbon Dioxide Level 25 MMOL/L (21-32) Anion Gap 9 mmol/L (5-15) Blood Urea Nitrogen 24 mg/dL (7-18) H Creatinine 1.0 MG/DL (0.55-1.30) Estimat Glomerular Filtration Rate > 60 mL/min (>60) Glucose Level 110 MG/DL (74-106) H Calcium Level 8.9 MG/DL (8.5-10.1) Total Bilirubin 0.2 MG/DL (0.2-1.0) Aspartate Amino Transf (AST/SGOT) 75 U/L (15-37) H Alanine Aminotransferase (ALT/SGPT) 134 U/L (12-78) H Alkaline Phosphatase 74 U/L (46-116) Total Protein 6.8 G/DL (6.4-8.2) Albumin 2.8 G/DL (3.4-5.0) L Globulin 4.0 g/dL Albumin/Globulin Ratio 0.7 (1.0-2.7) L Intake and Output 03/11/19 03/12/19 19:00 07:00 Intake Total 1000 ml Balance 1000 ml Intake Oral 1000 ml Objective PHYSICAL EXAMINATION: GENERAL: The patient is well-developed and well-nourished, confused male, in no apparent distress HEENT: Eyes, pupils are equal and responsive to light and accommodation. Extraocular movements are intact. NECK: Supple without lymphadenopathy. CHEST: Lungs are clear to auscultation bilaterally without wheezes or rales. CARDIOVASCULAR: Regular rhythm and rate. S1 and S2 normal without murmurs, rubs, or gallops. ABDOMEN: Soft, nontender, and nondistended. Positive bowel sounds. No evidence of hepatosplenomegaly. Currently, no rebound or guarding noted. EXTREMITIES: Negative for clubbing, cyanosis, or edema. RECTAL/GENITAL: Refused. NEUROLOGIC: Cranial nerves II through XII are grossly intact without focal deficits. Motor strength is 5/5 bilaterally. Deep tendon reflexes are 2+ plantar. Assessment/Plan Assessment/Plan ASSESSMENT: This is a 43-year-old male. 1. Abdominal pain. 2. Nausea with vomiting. 3. Perforated abdominal viscus. 4. Asthma. 5. Hypertension. 6. Diabetes type 2. 7. foreign object in sm intestine and colon 8. Schizophrenia TREATMENT: 1. Abdominal pain/nausea/vomiting/perforated viscus. A General Surgery consultation has been obtained with Dr. Tsang. We will follow recommendations of Surgery. The patient is currently tolerating diet. 2. Asthma. 3. Hypertension. The patient is currently normotensive, off medication. 4. History of diabetes type 2. The patient's blood sugar is currently normal. 5. D/C Seroquel; start risperdal for auditory hallucinations. See psychiatric consult=Dr Palacio 6. Discharge planning=transfer to inpatient psych unit when bed available. Valerio Daniel MD Mar 12, 2019 19:00
--- NOTE | 2019-03-12 19:16 | NUR ---
HAND-OFF: Report given to LEN NAVA.
--- NOTE | 2019-03-12 19:30 | Progress Note ---
DATE: 03/12/2019 SUBJECTIVE: The patient was eating, doing better. Continues to respond to internal stimuli. He stated that he would like to go to [facility]. He is not suicidal today. He stated that his symptoms are improved. He is compliant with his medication. He has taken the risperidone. He does not endorse any behavior issues. No agitation. MENTAL STATUS EXAMINATION: The patient alert, oriented times self, place, and date. Mood is irritable. Affect is constricted, congruent with mood. Thought process is linear. Thought content, no suicidal or homicidal ideations. Positive for auditory hallucinations. Insight and judgment is limited. ASSESSMENT: Schizophrenia. PLAN: 1. The patient will be continued on risperidone 2 mg at bedtime. 2. Continue the Ativan p.r.n. 3. The patient may be discharged to outpatient level of care. Wolf Palacio M.D. DR: ELIZABETH JOB#: [id number] CC:
--- NOTE | 2019-03-12 19:36 | NUR ---
NURSE NOTES: Patient in bed, awake, talkative, can make needs known. No s/s respiratory distress noted. No complaints of pain at this times. Ambulatory. Given juice and jello. Bed in lowest position, call light within reach. Will continue to monitor.
[2019-03-12 20:00] VITALS: BP 111/71
--- NOTE | 2019-03-12 21:20 | NUR ---
NURSE NOTES: CHANGED ABDOMINAL DRESSING, PATIENT TOLERATED.
[2019-03-13 00:18] VITALS: BP 114/74
[2019-03-13 04:53] VITALS: BP 109/61
[2019-03-13 06:47] LABS: BASOPHILS % (AUTO) 1.4 % (0.0-2.0); EOSINOPHILS % (AUTO) 7.2 % (0.0-3.0); HEMATOCRIT 36.2 % (42.0-52.0); HEMOGLOBIN 11.4 G/DL (14.2-18.0); LYMPHOCYTES % (AUTO) 35.3 % (20.0-45.0); MEAN CORPUSCULAR VOLUME 97 FL (80-99); MONOCYTES % (AUTO) 15.3 % (1.0-10.0); NEUTROPHILS % (AUTO) 40.8 % (45.0-75.0); PLATELET COUNT 351 K/UL (150-450); RED BLOOD COUNT 3.72 M/UL (4.70-6.10); RED CELL DISTRIBUTION WIDTH 15.1 % (11.6-14.8)
--- NOTE | 2019-03-13 07:35 | NUR ---
HAND-OFF: Report given to LENA AGUILAR LVN.
[2019-03-13 08:00] VITALS: BP 123/72
--- NOTE | 2019-03-13 08:00 | NUR ---
NURSE NOTES: Patient in bed fidgetting. A/A/OX4, talkative, able to make things known. No s/s of acute respiratory distress noted. No c/o pain at this times. Ambulatory. IV access intact and patent. patient removed the gauze on his abdomen and refused to be replaced. Bed in lowest position, locked. call light within reach. Will continue to monitor.
[2019-03-13 12:00] VITALS: BP 128/68
--- NOTE | 2019-03-13 12:22 | NUR ---
CHARGE NURSE NOTES: 1200 PATIENT VERBALIZED HE WANTS TO SIGN OUT AFTER HIS LUNCH. PER HIM HE WILL GO TO THE APPT AT [facility] SET UP FOR HIM ON 03/16/19. AND IS GOING TO FRIEND'S HOUSE TODAY. EXPLAINED THE RISKS AND BENEFITS OF LEAVING AMA. VERBALIZED UNDERSTANDING. PATIENT ALERT, ORIENTEDX4. SEEN AND EVALUATED BY MD DAVID 03/12/[address] CERDA, BELÉN HERNANDEZ NOTIFIED. SKILLED NURSING/RESOURCES LIST OFFERED. PATIENT REFUSED. ACCOMPANIED PATIENT TO LOBBY. IV LINE AND ID BAND REMOVED. BELONGINGS WITH PATIENT.
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
== END 2019-03-13 12:20 | disposition left against medical advice (07) | DRG 254 ==
LOC: EDBD 10:46 → EMR 11:21 → EDBEDREQ 12:26 → 4E 13:45 → EDBD 13:45 → EDBEDREQ 16:43 → 4E 03-09 12:32
DX: T18.3XXA Foreign body in small intestine, initial encounter (principal); K63.1 Perforation of intestine (nontraumatic); K66.8 Other specified disorders of peritoneum; T18.4XXA Foreign body in colon, initial encounter; J45.909 Unspecified asthma, uncomplicated; I10 Essential (primary) hypertension; E11.9 Type 2 diabetes mellitus without complications; Z59.0 Homelessness; G89.29 Other chronic pain; R10.9 Unspecified abdominal pain; F20.9 Schizophrenia, unspecified; W34.00XS Accidental discharge from unspecified firearms or gun, sequela; S00.11XA Contusion of right eyelid and periocular area, initial encounter; X58.XXXA Exposure to other specified factors, initial encounter
CPT/HCPCS: 36415; 70450; 71045; 74176; 80048; 80053; 82150; 83690; 85025; 85610; 85730; 86850; 86900; 86901; 93005; 96365; 99285

== ENCOUNTER 2019-07-26 14:44 | Emergency (ER) | payer MEDICAID ==
[~2019-07-26] VITALS: Ht 172.7 cm; Wt 72.6 kg
[~2019-07-26 14:44] MED LIST: NKM; RISPERDAL2 MG ORAL; SEROQUEL25 MG ORAL
[2019-07-26 14:50] VITALS: BP 126/79
--- NOTE | 2019-07-26 15:00 | NUR ---
ED Nurse Note: Patient brought in by RA [id number] from the [facility] c/o upper abdominal pain, patient does have an ulcer located on his upper abdomen, patient states that he was recently discharged a few days ago for his pain, rates his pain a 6/10 pain. will wait for further orders
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
[2019-07-26] MEDS ORDERED: Dicyclomine HCl 10mg/5ml oral soln ORAL ONE (15:15)
[2019-07-26] MEDS ORDERED: Mylanta II UD 30ml ORAL ONE (15:15)
[2019-07-26] MEDS ORDERED: Ondansetron ODT 8mg tab ORAL ONE (15:15)
[2019-07-26] MEDS ORDERED: Lidocaine 2% Visc 15ml soln ORAL ONE (15:15)
[2019-07-26] MEDS ORDERED: FAMOTIDINE20 MG ORAL (15:24)
[2019-07-26 16:20] VITALS: BP 126/79
--- NOTE | 2019-07-26 16:20 | NUR ---
Homeless Discharge: Patient is being discharged from medical care. Awake, alert and oriented x3. After care instructions, including referral to community resources were given. Patient verbalized understanding of After care instructions; at this time patient does not request medications, equipment or placement. Patient signed patient consent in the medical record for patient destination upon discharge. All medical devices such as ID band were removed. Patient ambulated out with all personal belongings with steady gait.
== END 2019-07-26 16:20 | disposition home or self-care (01) ==
LOC: EDBD 14:44 → EMR 15:21
DX: R10.84 Generalized abdominal pain (principal); E11.9 Type 2 diabetes mellitus without complications; I10 Essential (primary) hypertension
CPT/HCPCS: Q0162; Z7502; 99283